=== PATIENT | male | born 1940 | race Caucasian/White ===

== ENCOUNTER 2019-02-09 22:26 | Emergency (ER) | payer MEDICARE ==
[2019-02-09 23:02] LABS: #Basophils 0.1 thou/uL (0.0-0.2); #Eosinphils 0.2 thou/uL (0.0-0.7); #Lymphocytes 1.8 thou/uL (1.20-3.40); #Monocytes 0.8 thou/uL (0.11-0.59); #Neutrophils 5.3 thou/uL (1.40-6.50); %Basophils 0.7 % (0.0-1.0); %Eosinophils 2.6 % (0.0-10.0); %Lymphocytes 22.4 % (21.0-51.0); %Monocytes 9.8 % (0.0-10.0); %Neutrophils 64.5 % (42.0-75.0); Hemoglobin 12.3 g/dL (14.0-18.0); Mean Corpuscular HGB CONC 35.6 g/dL (32.0-36.0); Mean Corpuscular Hemoglobin 30.2 pg (27.0-31.0); Mean Corpuscular Volume 84.9 fL (78.0-98.0); Mean Platelet Volume 6.1 fL (7.4-10.4); Platelet Count 226 thou/uL (130-400); RBC Distribution Width 11.6 % (11.5-14.5); Red Blood Cell (RBC) Count 4.08 mill/uL (4.70-6.10); White Blood Cell (WBC) Count 8.2 thou/uL (4.8-10.8)
--- NOTE | 2019-02-09 23:13 | RAD ---
EXAM: 3 views of the right foot HISTORY: Bilateral feet wounds COMPARISON: None FINDINGS: 3 views of the right foot shows no evidence of acute fracture or dislocation. No osseous er osions are seen. No soft tissue swelling is seen. No degenerative changes are present. IMPRESSION: No evidence of acute osseous abnormality.
--- NOTE | 2019-02-09 23:14 | RAD ---
EXAM: 3 views of the left foot HISTORY: Bilateral feet wounds COMPARISON: None FINDINGS: 3 views of the left foot shows no evidence of acute fracture or dislocation. No osseous ero sions are present. No soft tissue swelling is seen. Joint space narrowing and osteophyte formation is seen in the great toe metatarsophalangeal joint. IMPRESSION: No evidence of acute osseous abnormality.
[2019-02-09 23:17] LABS: ALT (SGPT) 8 U/L (8-55); AST (SGOT) 10 U/L (5-34); Albumin 3.7 g/dL (3.4-4.8); Alkaline Phosphatase 80 U/L (40-150); Anion Gap 15 mmol/L (10-20); BUN (Urea Nitrogen) 14 mg/dL (8.4-25.7); Bilirubin, Total 0.5 mg/dL (0.2-1.2); Calc. Creatinine Clearance 0 mL/min (70-130); Calcium 9.6 mg/dL (7.8-10.44); Carbon Dioxide 25 mmol/L (23-31); Chloride 98 mmol/L (98-107); Estimated GFR-MDRD 72; Globulin 3.4 g/dL (2.4-3.5); Glucose 196 mg/dL (83-110); Potassium 3.6 mmol/L (3.5-5.1); Protein, Total 7.1 g/dL (5.8-8.1); Sodium 134 mmol/L (136-145)
[2019-02-09] MEDS ORDERED: HYDROcodone/Acetaminophen 10/325 mg Tablet ONE (23:53)
[2019-02-09] MEDS ORDERED: Sodium Chloride 0.9% 100 ML ONE (23:55)
[2019-02-09] MEDS ORDERED: Piperacillin/Tazobactam 4.5 GM VIAL ONE (23:55)
== END 2019-02-10 00:48 | disposition short-term general hospital (02) ==
LOC: SCSER 22:26
DX: E11.621 Type 2 diabetes mellitus with foot ulcer (principal); L97.529 Non-pressure chronic ulcer of other part of left foot with unspecified severity; I25.10 Atherosclerotic heart disease of native coronary artery without angina pectoris; I25.2 Old myocardial infarction; E78.5 Hyperlipidemia, unspecified; I10 Essential (primary) hypertension; L03.116 Cellulitis of left lower limb; L03.115 Cellulitis of right lower limb
CPT/HCPCS: 36416; 80053; 85025; 85652; 86140; 87070; 87077; 87186; 87205; 96365; 96375; J2543; J3370; J3490

== ENCOUNTER 2020-03-23 20:09 | Inpatient (IN) | payer MEDICARE, MEDICAID ==
[~2020-03-23 20:09] MED LIST: Iopamidol-370 76% 500 ML 1 ML ONE
[2020-03-23] MEDS ORDERED: Azithromycin 500 MG VIAL ONE (20:27)
[2020-03-23] MEDS ORDERED: Dexamethasone 10 MG/ML VIAL ONE (20:27)
[2020-03-23] MEDS ORDERED: cefTRIAXone\\ROCEPHIN 1 GM VIAL ONE (20:27)
[2020-03-23] MEDS ORDERED: Albuterol 200 PUFF (6.7GM INHALER) ONE (20:39)
--- NOTE | 2020-03-23 21:04 | RAD ---
PORTABLE CHEST: 03/23/20 HISTORY: Shortness of breath. COVID positive. There are bilateral confluent alveolar infiltrates which are prominent in both upper lobes and in the left lower lobe. Heart size upper normal and stable from prior exam of 2011. IMPRESSION: There are confluent bilateral infiltrates. POS: AGW
[2020-03-23 21:09] LABS: #Eosinphils 0.1 thou/uL (0.0-0.7); #Lymphocytes 0.9 thou/uL (1.20-3.40); #Neutrophils 5.3 thou/uL (1.40-6.50); %Basophils 0.6 % (0.0-1.0); %Eosinophils 1.7 % (0.0-10.0); %Lymphocytes 12.4 % (21.0-51.0); %Monocytes 13.6 % (0.0-10.0); %Neutrophils 71.7 % (42.0-75.0); Hemoglobin 12.9 g/dL (14.0-18.0); Mean Corpuscular HGB CONC 34.1 g/dL (32.0-36.0); Mean Corpuscular Hemoglobin 30.2 pg (27.0-31.0); Mean Corpuscular Volume 88.6 fL (78.0-98.0); Mean Platelet Volume 6.3 fL (7.4-10.4); Platelet Count 304 thou/uL (130-400); RBC Distribution Width 12.3 % (11.5-14.5); Red Blood Cell (RBC) Count 4.27 mill/uL (4.70-6.10); White Blood Cell (WBC) Count 7.4 thou/uL (4.8-10.8)
[2020-03-23 21:43] LABS: ALT (SGPT) 8 U/L (8-55); AST (SGOT) 15 U/L (5-34); Albumin 3.1 g/dL (3.4-4.8); Alkaline Phosphatase 54 U/L (40-110); Anion Gap 15 mmol/L (10-20); BUN (Urea Nitrogen) 30 mg/dL (8.4-25.7); Bilirubin, Total 0.5 mg/dL (0.2-1.2); Calc. Creatinine Clearance 0 mL/min (70-130); Carbon Dioxide 25 mmol/L (23-31); Chloride 91 mmol/L (98-107); Estimated GFR-MDRD 67; Glucose 130 mg/dL (83-110); Lipase 6 U/L (8-78); Potassium 4.3 mmol/L (3.5-5.1); Protein, Total 7.1 g/dL (5.8-8.1); Sodium 127 mmol/L (136-145)
[2020-03-23] MEDS ORDERED: Aspirin Chewable 81 MG TAB ONE (21:47)
[2020-03-23 21:54] LABS: CKMB 1.1 ng/mL (0-6.6)
[2020-03-23] MEDS ORDERED: Enoxaparin Sodium 100 MG/ML SYRINGE ONE (22:25)
[2020-03-23] MEDS ORDERED: HYDROcodone/Acetaminophen 5/325 mg Tablet PO PRN ×2 (23:04)
[2020-03-23] MEDS ORDERED: Guaifenesin DM 100-10/5 ML UDCUP PO PRN (23:04)
[2020-03-23] MEDS ORDERED: Ondansetron ODT 4 MG TAB PO PRN (23:04)
[2020-03-23] MEDS ORDERED: Ondansetron PF 4 MG/2 ML Vial IVP PRN (23:04)
[2020-03-23] MEDS ORDERED: Acetaminophen 650 MG Suppository PR PRN (23:04)
[2020-03-23] MEDS ORDERED: Nitroglycerin 0.4 MG TAB (25 Tab Bottle) SL PRN (23:04)
[2020-03-23] MEDS ORDERED: Calcium Carbonate 500 MG ChewTAB PO PRN (23:04)
[2020-03-23] MEDS ORDERED: Acetaminophen 325 MG TAB PO PRN (23:04)
[2020-03-23] MEDS ORDERED: Nitroglycerin 2% Ointment 1 INCH/1 GM Packet ONE (23:25)
[2020-03-23] MEDS ORDERED: Clopidogrel Bisulfate 75 MG TAB ONE (23:25)
--- NOTE | 2020-03-23 23:26 | PDOC.HHP ---
Hospitalist HPI - History of Present Illness covid 19 hypoxia History of Present Illness: Case of an 80y/o male group home resident with a pmhx of dementia, bipolar, cad, dm, hld and htn who was sent to hospital due to worsening of his covid symptoms. patient was been treated for covid at nursing, his symptoms kept worsening and started with hypoxia in the 70s at [facility] and they were unable to improve it with ther supplement oxygenation for which patient was sent to hospital for further care, was a 80s on 3L. patient is oriented to self and place but is not sure why he is on the hospital, denies any fever chills cough or malaise Hospitalist ROS - Review of Systems All other systems reviewed; all pertinent +/- noted in HPI/Subj Hospitalist History - Past Surgical History Past Surgical History: reports: Total Hip Replacement - Family History Family History: reports: no pertinent history - Social History Smoking Status: Never smoker Alcohol: reports: None Drugs: reports: none - Exam General Appearance: NAD, awake alert Eye: PERRL, anicteric sclera ENT: normocephalic atraumatic, no oropharyngeal lesions Neck: supple, symmetric, no JVD Heart: RRR, no murmur, no gallops Respiratory: CTAB, no wheezes, no rales Gastrointestinal: soft, non-tender, non-distended Extremities: no cyanosis, no clubbing, no edema Skin: normal turgor, no lesions, no rashes Neurological: cranial nerve grossly intact, normal sensation to touch Musculoskeletal: normal tone, normal strength, no muscle wasting Psychiatric: normal affect, normal behavior, A&O x 3 Hospitalist Results - Labs Result Diagrams: 03/23/20 21:00 03/23/20 21:00 Lab results: WBC 7.4 thou/uL (4.8-10.8) 03/23/20 21:00 Hgb 12.9 g/dL (14.0-18.0) L 03/23/20 21:00 Hct 37.8 % (42.0-52.0) L 03/23/20 21:00 MCV 88.6 fL (78.0-98.0) 03/23/20 21:00 Plt Count 304 thou/uL (130-400) 03/23/20 21:00 Neutrophils % 71.7 % (42.0-75.0) 03/23/20 21:00 Sodium 127 mmol/L (136-145) L 03/23/20 21:00 Potassium 4.3 mmol/L (3.5-5.1) 03/23/20 21:00 Chloride 91 mmol/L (98-107) L 03/23/20 21:00 Carbon Dioxide 25 mmol/L (23-31) 03/23/20 21:00 BUN 30 mg/dL (8.4-25.7) H 03/23/20 21:00 Creatinine 1.07 mg/dL (0.7-1.3) 03/23/20 21:00 Glucose 130 mg/dL (83-110) H 03/23/20 21:00 Lactic Acid 1.2 mmol/L (0.5-2.2) 03/23/20 21:01 Calcium 9.0 mg/dL (7.8-10.44) 03/23/20 21:00 Total Bilirubin 0.5 mg/dL (0.2-1.2) 03/23/20 21:00 AST 15 U/L (5-34) 03/23/20 21:00 ALT 8 U/L (8-55) 03/23/20 21:00 Alkaline Phosphatase 54 U/L (40-110) 03/23/20 21:00 CK-MB (CK-2) 1.1 ng/mL (0-6.6) 03/23/20 21:00 Troponin I 1.283 ng/mL (< 0.028) H* 03/23/20 21:00 Serum Total Protein 7.1 g/dL (5.8-8.1) 03/23/20 21:00 Albumin 3.1 g/dL (3.4-4.8) L 03/23/20 21:00 Lipase 6 U/L (8-78) L 03/23/20 21:00 Hospitalist H&P A/P - Problem (1) Pneumonia due to COVID-19 virus Code(s): U07.1 - COVID-19; J12.89 - OTHER VIRAL PNEUMONIA Status: Acute (2) NSTEMI (non-ST elevated myocardial infarction) Code(s): I21.4 - NON-ST ELEVATION (NSTEMI) MYOCARDIAL INFARCTION Status: Acute (3) Respiratory failure with hypoxia Code(s): J96.91 - RESPIRATORY FAILURE, UNSPECIFIED WITH HYPOXIA Status: Acute (4) Dementia Code(s): F03.90 - UNSPECIFIED DEMENTIA WITHOUT BEHAVIORAL DISTURBANCE Status: Acute (5) CAD (coronary artery disease) Code(s): I25.10 - ATHSCL HEART DISEASE OF [place] CORONARY ARTERY W/O ANG PCTRS Status: Acute (6) Diabetes Code(s): E11.9 - TYPE 2 DIABETES MELLITUS WITHOUT COMPLICATIONS Status: Acute (7) HLD (hyperlipidemia) Code(s): E78.5 - HYPERLIPIDEMIA, UNSPECIFIED Status: Acute (8) HTN (hypertension) Code(s): I10 - ESSENTIAL (PRIMARY) HYPERTENSION Status: Acute - Plan Plan: 80y/o male with the stated pmhx who present to hospial due to worsening covid 19 pneumonia covid 19 pneumonia - tested postive at group home - cx consistnent w covid 19 - started prophylactically on rocephin + charlene - dexamethasone 6mg ivd - f/u cultures - f/u inflmaation markers - id consulted respiratory failure w hypoxia - 02 supplementation - secondary to above nstemi - elevated troponin at 1.3 will trend - st changes lateral lead w q waves - 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
[2020-03-24 00:18] LABS: Critical Call Chem Troponin I RESULT DECREASING
[2020-03-24] MEDS: Sodium Chloride 0.9% 1,000 ML IV SCH ×2 (02:00→09:35)
[2020-03-24 05:08] LABS: Hemoglobin A1c 5.4 % (4.0-6.0)
[2020-03-24 05:31] LABS: Critical Call Chem Troponin I RESULT DECREASING; Troponin I 0.846 ng/mL (< 0.028)
[2020-03-24 05:34] LABS: ALT (SGPT) 12 U/L (8-55); AST (SGOT) 20 U/L (5-34); Albumin 3.2 g/dL (3.4-4.8); Alkaline Phosphatase 53 U/L (40-110); Anion Gap 19 mmol/L (10-20); BUN (Urea Nitrogen) 35 mg/dL (8.4-25.7); Bilirubin, Total 0.4 mg/dL (0.2-1.2); CRP (Inflammatory) 26.03 mg/dL (= or < 0.5); Calc. Creatinine Clearance 68 mL/min (70-130); Calcium 9.2 mg/dL (7.8-10.44); Carbon Dioxide 19 mmol/L (23-31); Cardiac Risk 7.5 (Less than 4.5); Chloride 93 mmol/L (98-107); Cholesterol 180 mg/dl (< 200 Desired); Estimated GFR-MDRD 66; Globulin 4.1 g/dL (2.4-3.5); Glucose 215 mg/dL (83-110); HDL Cholesterol 24 mg/dL (>60 Neg Risk); LDL Cholesterol, Calculated 136 mg/dL; Potassium 5.1 mmol/L (3.5-5.1); Protein, Total 7.3 g/dL (5.8-8.1); Sodium 126 mmol/L (136-145); Triglycerides 99 mg/dL (Less than 150)
[2020-03-24 05:42] LABS: Thyroid Stimulating Hormone 0.5574 uIU/mL (0.35-4.94)
[2020-03-24 05:46] LABS: Hemoglobin 12.4 g/dL (14.0-18.0); Mean Corpuscular HGB CONC 33.8 g/dL (32.0-36.0); Mean Corpuscular Hemoglobin 29.9 pg (27.0-31.0); Mean Corpuscular Volume 88.4 fL (78.0-98.0); Mean Platelet Volume 6.9 fL (7.4-10.4); Platelet Count 282 thou/uL (130-400); RBC Distribution Width 12.4 % (11.5-14.5); Red Blood Cell (RBC) Count 4.15 mill/uL (4.70-6.10); White Blood Cell (WBC) Count 6.2 thou/uL (4.8-10.8)
[2020-03-24 05:47] LABS: Band 6 % (5-11); Lymphocytes 13 % (21-51); MDiff Complete? YES; Monocytes 3 % (0-10); Neutrophil 78 % (42-75)
--- NOTE | 2020-03-24 06:25 | CT ---
CTA CHEST WITH CONTRAST: Date: 03/23/2020 Axial tomograms obtained with multiplanar reconstruction and 3D postprocessing. INDICATION: Shortness of breath. COVID-positive. FINDINGS: Pulmonary arteries show adequate opacification. There is no evidence of pulmonary embolus. There is mediastinal and hilar adenopathy. Small bilateral pleural effusions. The lung sanchez show diffuse confluent alveolar infiltrates throughout all lobes of both lung sanchez. Findings indicate extensive bilateral COVID pneumonia. IMPRESSION: 1. No evidence of pulmonary embolus. 2. Small bilateral effusions. 3. Mediastinal and hilar adenopathy. 4. Extensive bilateral pulmonary infiltrates consistent with COVID pneumonia. POS: AGW
[2020-03-24] MEDS ORDERED: FLU VACC QS2020-21(65YR UP)/PF 240 MCG/0.7 ML SYRINGE IM ONE (08:00)
[2020-03-24] MEDS: Aspirin 325 mg Enteric Coated Tablet PO SCH (09:31)
[2020-03-24] MEDS: Lisinopril 5 MG TAB PO SCH (09:31)
[2020-03-24] MEDS: Dexamethasone 4 mg/ml Vial SLOW IVP SCH (09:31)
[2020-03-24] MEDS: Enoxaparin Sodium 100 MG/ML SYRINGE SC SCH ×2 (09:31→21:38)
[2020-03-24] MEDS: Metoprolol Tartrate 25 MG TAB PO SCH ×2 (09:31→21:39)
--- NOTE | 2020-03-24 10:22 | PDOC.HOSPP ---
- Subjective Encounter Date: 03/24/20 Encounter Time: 10:18 Subjective: This patient is a 80[facility]-old [facility] who [facility] with [facility]id pneumonia [facility] being [facility]. Unfortunately it appears that he deteriorated prompting transfer to the [facility]. He was requiring oxygen on arrival but by the time I saw him this morning he was on room air. He had no fever, he has some cough. ID services were consulted. He will likely benefit from remdesivir. Will defer to the ID services about that. - Objective Vital Signs & Weight: Vital Signs (12 hours) Temp Pulse Resp BP Pulse Ox 03/24/20 07:47 92 L 03/24/20 07:04 97.7 F 102 H 24 H 125/78 92 L 03/24/20 03:50 97.5 F L 106 H 20 126/68 93 L 03/24/20 01:48 97.6 F 108 H 24 H 131/79 96 Weight Weight 186 lb 12.8 oz I&O: 03/23/20 03/24/20 03/25/20 06:59 06:59 06:59 Intake Total 300 Balance 300 Result Diagrams: 03/24/20 04:34 03/24/20 04:34 Additional Labs: Accuchecks 03/24/20 02:43 POC Glucose 205 H Radiology Reviewed by me: Yes EKG Reviewed by me: Yes Hospitalist ROS - Review of Systems Constitutional: reports: fever, weakness Respiratory: reports: cough, shortness of breath, sputum Gastrointestinal: reports: nausea Neurological: reports: weakness, incoordination - Medication Medications: Active Medications Generic Name Dose Route Start Last Admin Trade Name Maxime PRN Reason Stop Dose Admin Aspirin 325 mg 03/24/20 09:00 03/24/20 09:31 Aspirin 325 Mg Enteric Coated Tablet PO 325 mg DAILY MIKAELA Administration Dexamethasone 6 mg 03/24/20 09:00 03/24/20 09:31 Dexamethasone 4 Mg/Ml Vial SLOW IVP 6 mg DAILY MIKAELA Administration Enoxaparin Sodium 90 mg 03/24/20 09:00 03/24/20 09:31 Enoxaparin Sodium 100 Mg/Ml Syringe SC 90 mg 0900,2100 MIKAELA Administration Sodium Chloride 1,000 mls @ 70 mls/hr 03/23/20 23:15 03/24/20 09:35 Normal Saline 0.9% IV 1,000 mls .[id number] MIKAELA Administration Lisinopril 5 mg 03/24/20 09:00 03/24/20 09:31 Lisinopril 5 Mg Tab PO 5 mg DAILY MIKAELA Administration Metoprolol Tartrate 12.5 mg 03/24/20 09:00 03/24/20 09:31 Metoprolol Tartrate 25 Mg Tab PO 12.5 mg BID MIKAELA Administration Sodium Chloride 10 ml 03/24/20 09:00 03/24/20 09:32 Flush - Normal Saline 10 Ml Syringe IVF 10 ml Q12HR MIKAELA Administration - Exam General Appearance: awake alert Eye: PERRL, anicteric sclera ENT: normocephalic atraumatic, no oropharyngeal lesions, moist mucosa Neck: supple, symmetric, no JVD, no lymphadenopathy Heart: RRR, no murmur, no rubs, normal peripheral pulses Respiratory: CTAB, no wheezes, no rales, no ronchi, normal chest expansion, no tachypnea Gastrointestinal: soft, non-tender, non-distended, normal bowel sounds, no hepatomegaly, no splenomegaly, no guarding, no rigidity Extremities: no cyanosis, no clubbing, no edema Neurological: normal sensation to touch, no focal deficits, no new deficit Musculoskeletal: generalized weakness Psychiatric: normal affect, normal behavior, A&O x 3, oriented to person, oriented to place Hosp A/P (1) Respiratory failure with hypoxia Code(s): J96.91 - RESPIRATORY FAILURE, UNSPECIFIED WITH HYPOXIA Status: Acute Qualifiers: Chronicity: acute Qualified Code(s): J96.01 - Acute respiratory failure with hypoxia Plan: Continue O2 supplementation as needed. (2) Pneumonia due to COVID-19 virus Code(s): U07.1 - COVID-19; J12.89 - OTHER VIRAL PNEUMONIA Status: Acute Plan: Continue IV antibiotics. ID services were consulted and I will defer to them about further management of the Covid. (3) Dementia Code(s): F03.90 - UNSPECIFIED DEMENTIA WITHOUT BEHAVIORAL DISTURBANCE Status: Acute Qualifiers: Dementia type: vascular dementia Dementia behavioral disturbance: with behavioral disturbance Qualified Code(s): F01.51 - Vascular dementia with behavioral disturbance (4) Diabetes Code(s): E11.9 - TYPE 2 DIABETES MELLITUS WITHOUT COMPLICATIONS Status: Acute Qualifiers: Diabetes mellitus type: type 2 Diabetes mellitus fpc insulin use: with fpc use Diabetes mellitus complication status: with kidney complications Diabetes mellitus complication detail: with microalbuminuria Qualified Code(s): E11.29 - Type 2 diabetes mellitus with other diabetic kidney complication; R80.9 - Proteinuria, unspecified; Z79.4 - 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 Likely secondary to COVID-19 pneumonia. We will utilize O2 supplementation as needed. 2. COVID-19 pneumonia. [facility] and he started declining prompting this transfer to the hospital. Chest x-ray obtained here on admission consistent with Covid pneumonia. He is on empiric IV antibiotics and ID services evaluation has been obtained. I will defer to them about further management. 3. Diabetes type 2. Accu-Cheks before meals and at bedtime. We will utilize insulin sliding scale coverage. 4. Hyponatremia. Likely pseudohyponatremia from elevated blood glucose. We will correct this. 5. Elevated troponin. He did not report any chest pain. This is likely type II secondary to COVID-19 pneumonia and respiratory failure.
[2020-03-24 10:24] LABS: Ferritin 568.54 ng/mL (22-322)
[2020-03-24] MEDS ORDERED: cloNIDine 0.1 MG TAB PO PRN (12:57)
--- NOTE | 2020-03-24 15:15 | CON ---
DATE OF CONSULTATION: 03/24/2020 REASON FOR CONSULTATION: COVID infection. HISTORY OF PRESENT ILLNESS: A 80-year-old with history of coronary artery disease, type 2 diabetes, hypertension, and dementia, who is a resident at a local care home and has been diagnosed with COVID infection within a few days. It is not clear how long this infection has taken place or the duration of symptoms. We will have to clarify this with the care home. On arrival; his BP 130/76, temperature 98.4, O2 saturation 99 on a nonrebreather. Right now, he is on nasal cannula O2 and he is a little bit confused, but he is awake and alert and follows commands. Denies any headaches. Mild shortness of breath, coughing intermittently. No abdominal pain. No diarrhea. He is able to void without any assistance. PAST MEDICAL HISTORY: 1. Coronary artery disease. 2. Type 2 diabetes. 3. Hypertension. 4. Dementia. 5. Hip replacement. FAMILY HISTORY: Not pertinent. SOCIAL HISTORY: Never smoker. assisted resident. CURRENT MEDICATIONS: 1. Ecotrin. 2. Lipitor. 3. Azithromycin. 4. Rocephin. 5. Decadron. 6. Lovenox. 7. Zofran. PHYSICAL EXAMINATION: VITAL SIGNS: T-max 97.9, blood pressure 120/70, heart rate 102, respiratory rate 20 to 24, and saturating 92 on 1 L. GENERAL: Does not appear in distress. SKIN: Peripheral IV access. No lymphadenopathy. Alopecia. HEENT: Ocular movements conjugate. Sclerae white. Conjunctivae normal. Oral cavity with no significant findings. NECK: Supple. LUNGS: Symmetric. Clear breath sounds. HEART: S1 and S2. Regular rate without murmurs. No S3 or S4. ABDOMEN: Soft, not distended or tender. No ascites. No bladder distention. EXTREMITIES: No joint inflammatory activity. Able to move extremities. No edema. Pulses 1+ in dorsalis pedis. NEUROLOGIC: He is awake, knows his name, he did not know where he was and ability to give the sequence of events, very limited, he does have a very poor insight and very poor recent memory. LABORATORY DATA: White cell count 7.4 and 6.2, hemoglobin 12.4, and platelets 282 with 78% neutrophils. Sodium 126 and creatinine 1.08. Ferritin 568. Liver profile normal. LDH 283. Albumin 3.2. CRP 26. TSH 0.55. Procalcitonin 0.15. Chest x-ray, severe bilateral infiltrates. ASSESSMENT: 1. Dementia. 2. Type 2 diabetes. 3. Coronary artery disease. 4. Hypertension. 5. Severe COVID pneumonia. We will clarify with care home the duration of symptoms to see if he would be eligible for antiviral. In his case, it would be high probability of further deterioration, end up with high-flow O2, hopefully will turn around in the next few days, but the degree of infiltrates portends a poor prognosis in this age group. Job ID: [id number] [facility]
[2020-03-24] MEDS: Gabapentin 300 MG CAP PO SCH ×2 (16:27→21:39)
[2020-03-24] MEDS ORDERED: Dextrose 5% in Water 1,000 ML IV PRN (18:11)
[2020-03-24] MEDS ORDERED: HumaLOG 300 UNITS/3 ML VIAL SC PRN (18:11)
[2020-03-24] MEDS ORDERED: Dextrose 50% Abboject 50 ML SYRINGE SLOW IVP PRN (18:11)
[2020-03-24] MEDS: HumaLOG 300 UNITS/3 ML VIAL SC PRN (18:23)
[2020-03-24] MEDS: Azithromycin 500 MG in Sodium Chloride 0.9% 250 ML 250 ML IVPB SCH (20:50)
[2020-03-24] MEDS: Atorvastatin Calcium 40 MG TAB PO SCH (21:38)
[2020-03-24] MEDS: cefTRIAXone\\ROCEPHIN 1 GM in Sodium Chloride 0.9% 100 ML IVPB SCH (22:45)
[2020-03-25] MEDS: Sodium Chloride 0.9% 1,000 ML IV SCH (02:02)
[2020-03-25 05:24] LABS: Anion Gap 15 mmol/L (10-20); BUN (Urea Nitrogen) 46 mg/dL (8.4-25.7); Calc. Creatinine Clearance 69 mL/min (70-130); Calcium 9.1 mg/dL (7.8-10.44); Carbon Dioxide 22 mmol/L (23-31); Chloride 94 mmol/L (98-107); Estimated GFR-MDRD 68; Glucose 192 mg/dL (83-110); Potassium 4.4 mmol/L (3.5-5.1); Sodium 127 mmol/L (136-145)
[2020-03-25 05:28] LABS: #Lymphocytes 0.8 thou/uL (1.20-3.40); #Monocytes 0.8 thou/uL (0.11-0.59); #Neutrophils 10.4 thou/uL (1.40-6.50); %Basophils 0.1 % (0.0-1.0); %Eosinophils 0.1 % (0.0-10.0); %Lymphocytes 6.7 % (21.0-51.0); %Monocytes 6.9 % (0.0-10.0); %Neutrophils 86.2 % (42.0-75.0); Hemoglobin 12.4 g/dL (14.0-18.0); Mean Corpuscular HGB CONC 33.7 g/dL (32.0-36.0); Mean Corpuscular Volume 89.2 fL (78.0-98.0); Platelet Count 400 thou/uL (130-400); RBC Distribution Width 12.3 % (11.5-14.5); Red Blood Cell (RBC) Count 4.14 mill/uL (4.70-6.10); White Blood Cell (WBC) Count 12.1 thou/uL (4.8-10.8)
--- NOTE | 2020-03-25 05:52 | CON ---
DATE OF CONSULTATION: 03/24/2020 REASON FOR CONSULTATION: Elevated troponin. HISTORY OF PRESENT ILLNESS: Mr. Holland is very pleasant, confused, a 80-year-old gentleman who I have seen and evaluated in the past. He has not been seen over the last 10 years. He has a previous history of stent placement in addition to completely occluded right coronary artery. This has been known since at least 2006. He recently presented with COVID pneumonia. He denied chest pain or pressure. His only complaint was shortness of breath. Troponin was slightly elevated at 1.2. PAST MEDICAL HISTORY: CAD, status post stent placement; dementia; bipolar disorder; diabetes mellitus; hyperlipidemia; and hypertension. PAST SURGICAL HISTORY: Hip replacement. FAMILY HISTORY: Negative for CAD. SOCIAL HISTORY: No current tobacco or alcohol use. HOME MEDICATIONS: 1. Seroquel. 2. Metformin. 3. Melatonin. 4. Lisinopril. 5. Gabapentin. 6. Fluoxetine. 7. Iron sulfate. 8. Depakote. 9. Catapres. 10. Aspirin. 11. Acetaminophen. ALLERGIES: NONE. REVIEW OF SYSTEMS: is currently confused. He states he was hunting yesterday when in fact he was in the hospital. PHYSICAL EXAMINATION: VITAL SIGNS: Blood pressure 126/74, pulse 89, and temperature 97.9. Physical exam deferred due to COVID positive pneumonia. PERTINENT LABORATORY DATA: Sodium 126, potassium 5.1, ferritin 568, lactate dehydrogenase 283. C-reactive protein 26. Peak troponin 1.2. IMPRESSION: 1. Elevated troponin. 2. COVID pneumonia. 3. Dementia. 4. Bipolar disorder. RECOMMENDATIONS: I would recommend conservative therapy. Elevated troponin, secondary to type 2 IL from recent COVID pneumonia. He has no current symptoms suggesting angina. I agree with use of Lovenox 90 mg subcu b.i.d. due to increased risk of thrombosis from COVID. We will also continue with aspirin 325 q.a.m. We will recommend monitoring his blood pressure and heart rate aggressively. Job ID: [id number]
[2020-03-25] MEDS ORDERED: Furosemide 40 MG/4 ML VIAL SLOW IVP SCH (09:00)
[2020-03-25] MEDS: Enoxaparin Sodium 100 MG/ML SYRINGE SC SCH ×2 (09:13→21:06)
[2020-03-25] MEDS: Dexamethasone 4 mg/ml Vial SLOW IVP SCH (09:15)
--- NOTE | 2020-03-25 09:15 | RAD ---
PORTABLE CHEST 1 VIEW: DATE: 03/25/2020. TIME: 9:01 AM. HISTORY: COVID-19 pneumonia, increasing shortness of breath. COMPARISON: 03/23/2020. FINDINGS: The heart size is stable. Interval worsening of bilateral lung opacities has occurred since the prev ious study. No pneumothoraces or pleural effusions are seen. IMPRESSION: Worsening COVID-19 pneumonia. POS: AH
[2020-03-25] MEDS: Cholecalciferol 1,000 UNITS (25 MCG) TAB PO SCH (09:19)
[2020-03-25] MEDS: Gabapentin 300 MG CAP PO SCH ×3 (09:19→21:07)
[2020-03-25] MEDS: Aspirin 325 mg Enteric Coated Tablet PO SCH (09:19)
[2020-03-25] MEDS: FLUoxetine HCl 20 MG CAP PO SCH (09:19)
[2020-03-25] MEDS: Lisinopril 5 MG TAB PO SCH (09:22)
[2020-03-25] MEDS: Metoprolol Tartrate 25 MG TAB PO SCH ×2 (09:23→21:06)
--- NOTE | 2020-03-25 11:21 | PDOC.HOSPP ---
- Subjective Encounter Date: 03/25/20 Encounter Time: 11:17 Subjective: Events from last night are reviewed. He became more dyspneic and is now on high flow nasal cannula. On exam he has diffuse expiratory rhonchi and rales. He does still have cough. He looks comfortable on a high flow nasal cannula. We obtained stat chest x-ray this morning which showed worsening COVID-19 pneumonia. I suspect has some element of pulmonary edema from iatrogenic volume resuscitation. He can benefit from Lasix and we will give him 40 every 8 hours for now. - Objective Vital Signs & Weight: Vital Signs (12 hours) Temp Pulse Resp BP BP Pulse Ox 03/25/20 09:25 97.6 F 03/25/20 09:12 93 L 03/25/20 06:15 96.3 F L 86 24 H 119/76 98 03/25/20 05:45 95 03/25/20 05:20 68 L 03/25/20 03:30 97.6 F 87 20 114/67 85 L 03/25/20 01:49 96 03/25/20 00:05 97.6 F 82 24 H 107/59 L 92 L Weight Admit Weight 186 lb 12.8 oz Weight 186 lb 12.8 oz I&O: 03/24/20 03/25/20 03/26/20 06:59 06:59 06:59 Intake Total 300 2214 Balance 300 2214 Result Diagrams: 03/25/20 04:25 03/25/20 04:25 Radiology Reviewed by me: Yes (Worsening COVID-19 pneumonia. Diffuse pleural effusions as well.) Hospitalist ROS - Review of Systems Constitutional: reports: weakness, malaise Respiratory: reports: cough, shortness of breath, SOB with excertion, wheezing Cardiovascular: reports: paroxysmal noc. dyspnea Gastrointestinal: reports: nausea - Medication Medications: Active Medications Generic Name Dose Route Start Last Admin Trade Name Freq PRN Reason Stop Dose Admin Aspirin 325 mg 03/24/20 09:00 03/25/20 09:19 Aspirin 325 Mg Enteric Coated Tablet PO 325 mg DAILY MIKAELA Administration Atorvastatin Calcium 40 mg 03/24/20 21:00 03/24/20 21:38 Atorvastatin Calcium 40 Mg Tab PO 40 mg HS MIKAELA Administration Cholecalciferol 1,000 units 03/25/20 09:00 03/25/20 09:19 Cholecalciferol 1,000 Units (25 Mcg) Tab PO 1,000 units DAILY MIKAELA Administration Dexamethasone 6 mg 03/24/20 09:00 03/25/20 09:15 Dexamethasone 4 Mg/Ml Vial SLOW IVP 6 mg DAILY MIKAELA Administration Divalproex Sodium 500 mg 03/24/20 21:00 03/24/20 21:38 Divalproex Sodium Er 500 Mg Tablet PO 500 mg HS MIKAELA Administration Enoxaparin Sodium 90 mg 03/24/20 09:00 03/25/20 09:13 Enoxaparin Sodium 100 Mg/Ml Syringe SC 90 mg 09,2099 MIKAELA Administration Fluoxetine HCl 20 mg 03/25/20 09:00 03/25/20 09:19 Fluoxetine Hcl 20 Mg Cap PO 20 mg DAILY MIKAELA Administration Furosemide 40 mg 03/25/20 09:00 03/25/20 09:13 Furosemide 40 Mg/4 Ml Vial SLOW IVP 03/25/20 12:00 40 mg NOW MIKAELA Administration Gabapentin 300 mg 03/24/20 15:00 03/25/20 09:19 Gabapentin 300 Mg Cap PO 300 mg TID MIKAELA Administration Ceftriaxone Sodium 1 gm/ 100 mls @ 200 mls/hr 03/24/20 21:00 03/24/20 22:45 Sodium Chloride IVPB 100 mls Q24HR MIKAELA Administration Azithromycin 500 mg/ Sodium 250 mls @ 250 mls/hr 03/24/20 21:00 03/24/20 20 :50 Chloride IVPB 250 mls Q24HR MIKAELA Administration Insulin Human Lispro 0 units 03/24/20 18:11 03/24/20 21:56 Humalog 300 Units/3 Ml Vial SC 2 unit .BEDTIME SLIDING SC PRN Administration Bedtime Correctional Scale Lisinopril 5 mg 03/24/20 09:00 03/25/20 09:22 Lisinopril 5 Mg Tab PO 5 mg DAILY MIKAELA Administration Metoprolol Tartrate 12.5 mg 03/24/20 09:00 03/25/20 09:23 Metoprolol Tartrate 25 Mg Tab PO 12.5 mg BID MIKAELA Administration Quetiapine Fumarate 25 mg 03/24/20 21:00 03/25/20 09:22 Quetiapine Fumarate 25 Mg Tab PO 25 mg BID MIKAELA Administration Sodium Chloride 10 ml 03/24/20 09:00 03/25/20 09:24 Flush - Normal Saline 10 Ml Syringe IVF 10 ml Q12HR MIKAELA Administration - Exam General Appearance: ill appearing Eye: PERRL, anicteric sclera ENT: normocephalic atraumatic, no oropharyngeal lesions, moist mucosa Neck: supple, symmetric, no lymphadenopathy, JVD Heart: RRR, no murmur Respiratory: rales, rhonchi, wheezes Gastrointestinal: soft, non-tender, non-distended, normal bowel sounds Extremities: no cyanosis Skin: normal turgor Musculoskeletal: normal tone, normal strength, no muscle wasting Psychiatric: normal affect, oriented to place, oriented to time Hosp A/P (1) Respiratory failure with hypoxia Code(s): J96.91 - RESPIRATORY FAILURE, UNSPECIFIED WITH HYPOXIA Status: Acute Qualifiers: Chronicity: acute Qualified Code(s): J96.01 - Acute respiratory failure with hypoxia Plan: Complicated by COVID-19 pneumonia. He has been upgraded to high flow nasal cannula. We will have a low threshold to intubate this maximino should he not improve. (2) Pneumonia due to COVID-19 virus Code(s): U07.1 - COVID-19; J12.89 - OTHER VIRAL PNEUMONIA Status: Acute Plan: We appreciate our ID colleagues. Continue current management plan. 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 This appears to be a type II VT secondary to respiratory failure from the Covid. - Plan old records reviewed/req, continue antibiotics, PT/OT, respiratory therapy #1 Acute hypoxic respiratory failure. Likely secondary to COVID-19 pneumonia. We will utilize O2 supplementation as needed. 03/25/2020. His respiratory status appears to have worsened overnight. He is now on high flow nasal cannula. There appears to be now elements of pleural effusion likely from iatrogenic volume resuscitation from admission. We will keep him on high flow nasal cannula and downgrade as tolerated. 2. COVID-19 pneumonia. He reportedly was diagnosed at his [facility] and he started declining prompting this transfer to the hospital. Chest x-ray obtained here on admission consistent with Covid pneumonia. He is on empiric IV antibiotics and ID services evaluation has been obtained. I will defer to them about further management. 03/25/2020. Continue treatment for the Covid pneumonia. 3. Diabetes type 2. Accu-Cheks before meals and at bedtime. We will utilize insulin sliding scale coverage. 03/25/2020. Diabetes type 2 now complicated by steroid use for his Covid. We will continue to utilize sliding scale coverage. 4. Hyponatremia. Likely pseudohyponatremia from elevated blood glucose. We will correct this. 5. Elevated troponin. He did not report any chest pain. This is likely type II secondary to COVID-19 pneumonia and respiratory failure. 03/25/2020. He has been evaluated by copy supervisor who recommends medical management.
[2020-03-25 11:41] LABS: Hemoglobin 12.5 g/dL (14.0-18.0); Platelet Count 335 thou/uL (130-400)
[2020-03-25] MEDS: HumaLOG 300 UNITS/3 ML VIAL SC PRN ×2 (14:57→17:59)
[2020-03-25] MEDS: Furosemide 40 MG/4 ML VIAL SLOW IVP SCH ×2 (17:59→19:49)
[2020-03-25] MEDS: cefTRIAXone\\ROCEPHIN 1 GM in Sodium Chloride 0.9% 100 ML IVPB SCH (21:06)
[2020-03-25] MEDS: Atorvastatin Calcium 40 MG TAB PO SCH (21:07)
[2020-03-25] MEDS: Azithromycin 500 MG in Sodium Chloride 0.9% 250 ML 250 ML IVPB SCH (21:38)
[2020-03-26] MEDS: Furosemide 40 MG/4 ML VIAL SLOW IVP SCH ×2 (00:30→11:27)
[2020-03-26 05:20] LABS: #Basophils 0.1 thou/uL (0.0-0.2); #Lymphocytes 0.6 thou/uL (1.20-3.40); #Monocytes 0.8 thou/uL (0.11-0.59); %Basophils 0.8 % (0.0-1.0); %Eosinophils 0.1 % (0.0-10.0); %Lymphocytes 3.7 % (21.0-51.0); %Monocytes 5.1 % (0.0-10.0); %Neutrophils 90.3 % (42.0-75.0); Hemoglobin 12.1 g/dL (14.0-18.0); Mean Corpuscular HGB CONC 33.8 g/dL (32.0-36.0); Mean Corpuscular Hemoglobin 30.2 pg (27.0-31.0); Mean Corpuscular Volume 89.3 fL (78.0-98.0); Mean Platelet Volume 7.1 fL (7.4-10.4); Platelet Count 441 thou/uL (130-400); RBC Distribution Width 12.4 % (11.5-14.5); Red Blood Cell (RBC) Count 4.01 mill/uL (4.70-6.10); White Blood Cell (WBC) Count 15.5 thou/uL (4.8-10.8)
[2020-03-26 05:36] LABS: Anion Gap 19 mmol/L (10-20); BUN (Urea Nitrogen) 58 mg/dL (8.4-25.7); Calc. Creatinine Clearance 59 mL/min (70-130); Calcium 9.2 mg/dL (7.8-10.44); Carbon Dioxide 20 mmol/L (23-31); Chloride 96 mmol/L (98-107); Estimated GFR-MDRD 56; Glucose 165 mg/dL (83-110); Potassium 4.9 mmol/L (3.5-5.1); Sodium 130 mmol/L (136-145)
[2020-03-26 06:03] LABS: Actual Bicarbonate (HCO3a) 18.9 mEq/L (22-28); Base Excess (BEa) -4.8 mEq/L (-2.0 to +3.0); Calcium, Ionized (arterial) 1.18 mmol/L (1.12-1.30); Carboxyhemoglobin (COHb) 0.3 gm% (0.0-3.0); Hemoglobin (Hb) 12.3 g/dL (14.0-18.0); Potassium - ABG Lab 4.41 mmol/L (3.70-5.30)
[2020-03-26 06:04] LABS: O2 Tension (PaO2), arterial 52.1 mmHg (> 70.0)
[2020-03-26 06:05] LABS: Puncture Site RBRACH
[2020-03-26] MEDS: Dexamethasone 4 mg/ml Vial SLOW IVP SCH (11:22)
[2020-03-26] MEDS: Aspirin 325 mg Enteric Coated Tablet PO SCH (11:24)
[2020-03-26] MEDS: Gabapentin 300 MG CAP PO SCH ×3 (11:24→21:15)
[2020-03-26] MEDS: FLUoxetine HCl 20 MG CAP PO SCH (11:26)
[2020-03-26] MEDS: Enoxaparin Sodium 100 MG/ML SYRINGE SC SCH ×2 (11:26→21:17)
[2020-03-26] MEDS: Cholecalciferol 1,000 UNITS (25 MCG) TAB PO SCH (11:26)
[2020-03-26] MEDS: Lisinopril 5 MG TAB PO SCH (11:27)
[2020-03-26] MEDS: Metoprolol Tartrate 25 MG TAB PO SCH ×3 (11:27→21:47)
[2020-03-26] MEDS: Lorazepam 0.5 MG TAB PO PRN ×2 (11:31→22:30)
[2020-03-26] MEDS: HumaLOG 300 UNITS/3 ML VIAL SC PRN ×2 (11:41→17:53)
[2020-03-26] MEDS ORDERED: REMDESIVIR (EUA) 200 MG in Sodium Chloride 0.9% 250 ML 210 ML IV SCH (13:30)
--- NOTE | 2020-03-26 13:54 | CON ---
DATE OF CONSULTATION: 03/26/2020 CHIEF COMPLAINT: COVID pneumonia. HISTORY OF PRESENT ILLNESS: Mr. Holland is a 80-year-old gentleman, resident of a halfway where he has comorbid diagnoses including dementia, bipolar disease, diabetes, and coronary artery disease. The patient was found to have COVID several days prior to admission, although the exact date of symptom onset is unclear. He began to have increasing confusion and increasing shortness of breath, at which time, he was transferred to the hospital. He was seen in Infectious Disease consultation and was receiving azithromycin and Decadron, but not yet on remdesivir or convalescent plasma. He has had a chest x-ray and CAT scan demonstrating very extensive bilateral alveolar filling consolidations. Today, he became more short of breath and required more oxygen and is currently in the IMCU. His oxygen demands to have worsened and he is now on BiPAP with FiO2 of 60%. He has symptoms of shortness of breath as well as cough. He has not had any fever. Because of worsening pulmonary status, Pulmonary Service is consulted for additional medical assistance. SOCIAL HISTORY: The patient is a 80-year-old gentleman. He is a nonsmoker. MEDICATIONS: His halfway medication list and current medication list have been reviewed. ALLERGIES: HE HAS NO MEDICATION ALLERGIES. PAST HISTORY: Remarkable for known atherosclerotic vascular disease with previous stent placement. He has dementia, bipolar disease, diabetes, hypertension, and dyslipidemia. PHYSICAL EXAMINATION: VITAL SIGNS: Current blood pressure 111/69, heart rate is 82, and saturation 92% on BiPAP with FiO2 of 0.6. BMI is 26.8. Height 5 feet and 10 inches, weight 186. GENERAL: He is an elderly gentleman, mildly tachypneic. He knows he is in the hospital. HEENT: Shows no JVD or carotid bruit. He has no adenopathy. LUNGS: Show bilateral coarse rhonchi in all lung sanchez. He is mildly tachypneic with increased work of breathing. HEART: Regular rate and rhythm. There is no audible murmur or gallop. ABDOMEN: Soft. There is no organomegaly. There is no guarding. EXTREMITIES: Show no cyanosis, clubbing, or edema. LABORATORY DATA: Chest x-ray and CT revealed bilateral dense patchy consolidations consistent with COVID. White count 15,500, hemoglobin is 12.1, hematocrit is 35.8, and platelet count of 441,000. Blood gas includes pH of 7.4, CO2 of 31, pO2 of 52, and bicarb is 19. This is consistent with a metabolic acidosis and appropriate respiratory compensation. Electrolytes include sodium 130, potassium 4.9, chloride 96, CO2 is 20, BUN 58, and creatinine 1.2. IMPRESSION: 1. COVID pneumonia. Quite severe based on radiographic findings. Oxygen demands are worsening and he has gone from simple nasal cannula to BiPAP at 60%. We still have a little bit of room to maneuver, but at this pace may well require ventilatory support. He has been on azithromycin and steroids. He has not received remdesivir or convalescent serum. 2. History of atherosclerotic vascular disease. 3. History of dementia. 4. History of diabetes. PLAN: He will continue with current oxygen supplementation and additional adjustment as needed. We might be able to do better with a high-flow nasal cannula, then begin with a BiPAP. If necessary we can pursue ventilatory support, although prognosis is associated with that at his age and with his comorbid medical issues, it is quite poor. I think it is reasonable to give remdesivir. I will try to discuss this with the Hospitalist Service. Critical care time, 41 minutes. Job ID: [id number]
--- NOTE | 2020-03-26 16:17 | PDOC.HOSPP ---
- Subjective Encounter Date: 03/26/20 Encounter Time: 16:16 Subjective: Events from last night reviewed. Patient became more acutely short of breath after he took his high flow. He deteriorated to the point that he was transferred to [facility]. He is now on BiPAP and pulmonary services are following him. - Objective Vital Signs & Weight: Vital Signs (12 hours) Pulse Resp BP BP Pulse Ox 03/26/20 11:27 82 03/26/20 08:00 92 L 03/26/20 06:15 82 33 H 105/66 94 L 03/26/20 05:25 89 33 H 114/56 L 93 L 03/26/20 04:24 94 L Weight Admit Weight 186 lb 12.8 oz Weight 186 lb 12.8 oz Most Recent Monitor Data Heart Rate from ECG 82 NIBP 96/57 NIBP BP-Mean 70 Respiration from ECG 27 SpO2 93 I&O: 03/25/20 03/26/20 03/27/20 06:59 06:59 05:59 Intake Total 2214 Balance 2214 Result Diagrams: 03/26/20 04:50 03/26/20 04:50 Additional Labs: Accuchecks 03/26/20 03/26/20 03/25/20 11:46 07:13 21:38 POC Glucose 175 H 187 H 150 H 03/25/20 03/25/20 03/24/20 17:15 11:44 21:43 POC Glucose 203 H 199 H 234 H 03/24/20 16:39 POC Glucose 208 H Radiology Reviewed by me: Yes EKG Reviewed by me: Yes Hospitalist ROS - Review of Systems ROS unobtainable: due to mental status Respiratory: reports: cough, shortness of breath, SOB with excertion, sputum, wheezing - Medication Medications: Active Medications Generic Name Dose Route Start Last Admin Trade Name Freq PRN Reason Stop Dose Admin Aspirin 325 mg 03/24/20 09:00 03/26/20 11:24 Aspirin 325 Mg Enteric Coated Tablet PO 325 mg DAILY MIKAELA Administration Atorvastatin Calcium 40 mg 03/24/20 21:00 03/25/20 21:07 Atorvastatin Calcium 40 Mg Tab PO 40 mg HS MIKAELA Administration Cholecalciferol 1,000 units 03/25/20 09:00 03/26/20 11:26 Cholecalciferol 1,000 Units (25 Mcg) Tab PO 1,000 units DAILY MIKAELA Administration Dexamethasone 6 mg 03/24/20 09:00 03/26/20 11:22 Dexamethasone 4 Mg/Ml Vial SLOW IVP 6 mg DAILY MIKAELA Administration Divalproex Sodium 500 mg 03/24/20 21:00 03/25/20 21:06 Divalproex Sodium Er 500 Mg Tablet PO 500 mg HS MIKAELA Administration Enoxaparin Sodium 90 mg 03/24/20 09:00 03/26/20 11:26 Enoxaparin Sodium 100 Mg/Ml Syringe SC 90 mg 0900,2100 MIKAELA Administration Fluoxetine HCl 20 mg 03/25/20 09:00 03/26/20 11:26 Fluoxetine Hcl 20 Mg Cap PO 20 mg DAILY MIKAELA Administration Gabapentin 300 mg 03/24/20 15:00 03/26/20 11:24 Gabapentin 300 Mg Cap PO 300 mg TID MIKAELA Administration Ceftriaxone Sodium 1 gm/ 100 mls @ 200 mls/hr 03/24/20 21:00 03/25/20 21:06 Sodium Chloride IVPB 100 mls Q24HR MIKAELA Administration Azithromycin 500 mg/ Sodium 250 mls @ 250 mls/hr 03/24/20 21:00 03/25/20 21:38 Chloride IVPB 250 mls Q24HR MIKAELA Administration Insulin Human Lispro 0 units 03/24/20 18:11 03/26/20 11:41 Humalog 300 Units/3 Ml Vial SC 2 unit .MILD SLIDING SCALE PRN Administration Mild Correctional Scale Insulin Human Lispro 0 units 03/24/20 18:11 03/24/20 21:56 Humalog 300 Units/3 Ml Vial SC 2 unit .BEDTIME SLIDING SC PRN Administration Bedtime Correctional Scale Lisinopril 5 mg 03/24/20 09:00 03/26/20 11:27 Lisinopril 5 Mg Tab PO Not Given DAILY MIKAELA Lorazepam 0.5 mg 03/26/20 10:23 03/26/20 11:31 Lorazepam 0.5 Mg Tab PO 0.5 mg Q6H PRN Administration Anxiety Metoprolol Tartrate 12.5 mg 03/24/20 09:00 03/26/20 11:27 Metoprolol Tartrate 25 Mg Tab PO 12.5 mg BID MIKAELA Administration Quetiapine Fumarate 25 mg 03/24/20 21:00 03/26/20 11:24 Quetiapine Fumarate 25 Mg Tab PO 25 mg BID MIKAELA Administration Sodium Chloride 10 ml 03/24/20 09:00 03/26/20 11:24 Flush - Normal Saline 10 Ml Syringe IVF 10 ml Q12HR MIKAELA Administration - Exam General Appearance: ill appearing Eye: PERRL, anicteric sclera ENT: normocephalic atraumatic, dry oral mucosa Neck: supple, symmetric, no thyromegaly, JVD Heart: RRR, no murmur, no gallops, no rubs Respiratory: normal chest expansion, tachypneic, wheezes Gastrointestinal: soft, non-tender, non-distended, normal bowel sounds, no pal pable masses, no hepatomegaly, no splenomegaly Skin: normal turgor Neurological: cranial nerve grossly intact, no focal deficits Musculoskeletal: normal tone, normal strength Psychiatric: flat affect, somnolent, lethargic Hosp A/P (1) Respiratory failure with hypoxia Code(s): J96.91 - RESPIRATORY FAILURE, UNSPECIFIED WITH HYPOXIA Status: Acute Qualifiers: Chronicity: acute Qualified Code(s): J96.01 - Acute respiratory failure with hypoxia Plan: This has worsened slightly. He is now on BiPAP. We will continue supportive care likely doing. (2) Pneumonia due to COVID-19 virus Code(s): U07.1 - COVID-19; J12.89 - OTHER VIRAL PNEUMONIA Status: Acute (3) Dementia Code(s): F03.90 - UNSPECIFIED DEMENTIA WITHOUT BEHAVIORAL DISTURBANCE Status: Acute Qualifiers: Dementia type: vascular dementia Dementia behavioral disturbance: with beh avioral disturbance Qualified Code(s): F01.51 - Vascular dementia with be havioral disturbance (4) Diabetes Code(s): E11.9 - TYPE 2 DIABETES MELLITUS WITHOUT COMPLICATIONS Status: Acute Qualifiers: Diabetes mellitus type: type 2 Diabetes mellitus halfway insulin use: with terminal operator use Diabetes mellitus complication status: with kidney complications Diabetes mellitus complication detail: with microalbuminuria Qualified Code(s): E11.29 - Type 2 diabetes mellitus with other diabetic kidney complication; R80.9 - Proteinuria, unspecified; Z79.4 - terminal operator (current) use of insulin (5) NSTEMI (non-ST elevated myocardial infarction) Code(s): I21.4 - NON-ST ELEVATION (NSTEMI) MYOCARDIAL INFARCTION Status: Acute - Plan #1 Acute hypoxic respiratory failure. Likely secondary to COVID-19 pneumonia. We will utilize O2 supplementation as needed. 03/25/2020. His respiratory status appears to have worsened overnight. He is now on high flow nasal cannula. There appears to be now elements of pleural effusion likely from iatrogenic volume resuscitation from admission. We will keep him on high flow nasal cannula and downgrade as tolerated. 03/26/2020. This has worsened significantly to the point that he is now on BiPAP since last night. He is being managed now by pulmonary services. His prognosis is guarded at best. 2. COVID-19 pneumonia. He reportedly was diagnosed at his intermediate and he started declining prompting this transfer to the hospital. Chest x-ray obtained here on admission consistent with Covid pneumonia. He is on empiric IV antibiotics and ID services evaluation has been obtained. I will defer to them about further management. 03/25/2020. Continue treatment for the Covid pneumonia. 03/26/2020. Continue supportive care with antibiotic. Will discuss with ID about considering remdesivir. 3. Diabetes type 2. Accu-Cheks before meals and at bedtime. We will utilize insulin sliding scale coverage. 03/25/2020. Diabetes type 2 now complicated by steroid use for his Covid. We will continue to utilize sliding scale coverage. 4. Hyponatremia. Likely pseudohyponatremia from elevated blood glucose. We will correct this. 5. Elevated troponin. He did not report any chest pain. This is likely type II secondary to COVID-19 pneumonia and respiratory failure. 03/25/2020. He has been evaluated by geology technician who recommends medical management.
[2020-03-26] MEDS: cefTRIAXone\\ROCEPHIN 1 GM in Sodium Chloride 0.9% 100 ML IVPB SCH (21:14)
[2020-03-26] MEDS: Azithromycin 500 MG in Sodium Chloride 0.9% 250 ML 250 ML IVPB SCH (21:15)
[2020-03-26] MEDS: Atorvastatin Calcium 40 MG TAB PO SCH (21:17)
[2020-03-27 07:11] LABS: #Lymphocytes 0.8 thou/uL (1.20-3.40); #Monocytes 0.6 thou/uL (0.11-0.59); #Neutrophils 13.2 thou/uL (1.40-6.50); %Basophils 0.3 % (0.0-1.0); %Eosinophils 0.1 % (0.0-10.0); %Lymphocytes 5.2 % (21.0-51.0); %Monocytes 3.8 % (0.0-10.0); %Neutrophils 90.6 % (42.0-75.0); Mean Corpuscular Hemoglobin 29.7 pg (27.0-31.0); Mean Platelet Volume 7.1 fL (7.4-10.4); Platelet Count 385 thou/uL (130-400); RBC Distribution Width 12.7 % (11.5-14.5); White Blood Cell (WBC) Count 14.5 thou/uL (4.8-10.8)
[2020-03-27 07:32] LABS: Anion Gap 19 mmol/L (10-20); BUN (Urea Nitrogen) 75 mg/dL (8.4-25.7); Calc. Creatinine Clearance 59 mL/min (70-130); Calcium 8.7 mg/dL (7.8-10.44); Carbon Dioxide 18 mmol/L (23-31); Chloride 98 mmol/L (98-107); Estimated GFR-MDRD 56; Glucose 187 mg/dL (83-110); Magnesium 2.4 mg/dL (1.6-2.6); Potassium 5.1 mmol/L (3.5-5.1); Sodium 130 mmol/L (136-145)
[2020-03-27] MEDS: Aspirin 325 mg Enteric Coated Tablet PO SCH ×2 (07:42→08:51)
[2020-03-27] MEDS: Tamsulosin HCl 0.4 MG CAP PO SCH ×2 (07:42→08:52)
[2020-03-27] MEDS: Gabapentin 300 MG CAP PO SCH ×3 (07:42→23:08)
[2020-03-27] MEDS: Enoxaparin Sodium 100 MG/ML SYRINGE SC SCH ×2 (07:42→20:16)
[2020-03-27] MEDS: FLUoxetine HCl 20 MG CAP PO SCH ×2 (07:43→08:51)
[2020-03-27] MEDS: Cholecalciferol 1,000 UNITS (25 MCG) TAB PO SCH ×2 (07:43→08:51)
[2020-03-27] MEDS: Dexamethasone 4 mg/ml Vial SLOW IVP SCH (07:43)
[2020-03-27] MEDS: Lorazepam 0.5 MG TAB PO PRN (08:10)
[2020-03-27] MEDS: Lisinopril 5 MG TAB PO SCH (08:49)
[2020-03-27] MEDS: Metoprolol Tartrate 25 MG TAB PO SCH ×2 (08:49→23:09)
--- NOTE | 2020-03-27 09:54 | PRG ---
DATE OF SERVICE: 03/27/2020 SUBJECTIVE: Mr. Holland continues to struggle currently on BiPAP with FiO2 of 70%. He is noted to have significant work of breathing. We would clearly like to avoid intubation, although does not appear to be favorable direction at this point in time. OBJECTIVE: VITAL SIGNS: Blood pressure 117/90, heart rate is 90, and current saturation 92 on BiPAP therapy. GENERAL: He is restless, mildly diaphoretic and has increased work of breathing. LUNGS: Bilateral rhonchi are noted on lung exam. HEART: Regular rate and rhythm. ABDOMEN: Soft. There is no organomegaly. Bowel sounds are normal. EXTREMITIES: He has no edema. There is no cords or tenderness. LABORATORY DATA: White count 14,500, hemoglobin is 11 with hematocrit 33.3, and platelet count 385,000. Chemistry panel includes sodium 130, potassium 5.1, chloride 98, CO2 is 18, BUN 75, and creatinine 1.4. Creatinine is stable. BUN is increasing, probably secondary to steroid therapy. IMAGING DATA: Chest x-ray today demonstrates extensive bilateral opacification with near complete whiteout of all lung sanchez. It is not significantly changed compared to the previous film of 03/25/2020. IMPRESSION: COVID pneumonia with impending respiratory failure on BiPAP. PLAN: We will continue current therapies, although I am pessimistic about his ability to avoid intubation. We will continue to observe through the day, but prepared to proceed with transfer to the acute ICU component with intubation if necessary. Critical care time, 32 minutes. Job ID: [id number]
--- NOTE | 2020-03-27 10:22 | RAD ---
PORTABLE CHEST: 03/27/20 PROVIDED CLINICAL HISTORY: Shortness of breath. COMPARISON: 03/25/2020 FINDINGS: Significant interval change with respect to the prior examination is not apparent. IMPRESSION: As above. POS: TOM
[2020-03-27] MEDS ORDERED: REMDESIVIR (EUA) 100 MG in Sodium Chloride 0.9% 250 ML 230 ML IV SCH (13:30)
--- NOTE | 2020-03-27 15:36 | PDOC.HOSPP ---
- Subjective Encounter Date: 03/27/20 Encounter Time: 15:34 non-verbal Subjective: 80-year-old patient admitted to the hospital for Covid pneumonia. He is now in respiratory failure and requiring BiPAP. He is not doing very well at this minute. I am thinking he will probably need more respiratory support in the near future. We will continue BiPAP at this time. We appreciate pulmonary services for their help. - Objective Vital Signs & Weight: Vital Signs (12 hours) Temp Pulse Pulse Ox 03/27/20 13:00 97.0 F L 03/27/20 09:40 97.0 F L 03/27/20 08:49 82 03/27/20 08:00 98 03/27/20 06:00 97.1 F L Weight Admit Weight 186 lb 12.8 oz Weight 186 lb 12.8 oz Most Recent Monitor Data Heart Rate from ECG 82 NIBP 109/68 NIBP BP-Mean 81 Respiration from ECG 29 SpO2 100 I&O: 03/26/20 03/27/20 03/28/20 07:59 06:59 06:59 Intake Total Output Total Balance Result Diagrams: 03/27/20 06:53 03/27/20 06:53 Additional Labs: Accuchecks 03/27/20 03/27/20 03/26/20 12:13 05:57 20:54 POC Glucose 188 H 182 H 195 H 03/26/20 18:03 POC Glucose 156 H Radiology Reviewed by me: Yes EKG Reviewed by me: Yes Hospitalist ROS - Review of Systems ROS unobtainable: due to mental status Constitutional: reports: fever, weakness, malaise Respiratory: reports: cough, shortness of breath, SOB with excertion, wheezing Gastrointestinal: reports: nausea - Medication Medications: Active Medications Generic Name Dose Route Start Last Admin Trade Name Freq PRN Reason Stop Dose Admin Aspirin 325 mg 03/24/20 09:00 03/27/20 08:51 Aspirin 325 Mg Enteric Coated Tablet PO Not Given DAILY MIKAELA Atorvastatin Calcium 40 mg 03/24/20 21:00 03/26/20 21:17 Atorvastatin Calcium 40 Mg Tab PO 40 mg HS MIKAELA Administration Cholecalciferol 1,000 units 03/25/20 09:00 03/27/20 08:51 Cholecalciferol 1,000 Units (25 Mcg) Tab PO Not Given DAILY MIKAELA Dexamethasone 6 mg 03/24/20 09:00 03/27/20 07:43 Dexamethasone 4 Mg/Ml Vial SLOW IVP 6 mg DAILY MIKAELA Administration Divalproex Sodium 500 mg 03/24/20 21:00 03/26/20 21:17 Divalproex Sodium Er 500 Mg Tablet PO 500 mg HS MIKAELA Administration Enoxaparin Sodium 90 mg 03/24/20 09:00 03/27/20 07:42 Enoxaparin Sodium 100 Mg/Ml Syringe SC 90 mg 0900,2100 MIKAELA Administration Fluoxetine HCl 20 mg 03/25/20 09:00 03/27/20 08:51 Fluoxetine Hcl 20 Mg Cap PO Not Given DAILY MIKAELA Gabapentin 300 mg 03/24/20 15:00 03/27/20 14:00 Gabapentin 300 Mg Cap PO Not Given TID MIKAELA Ceftriaxone Sodium 1 gm/ 100 mls @ 200 mls/hr 03/24/20 21:00 03/26/20 21:14 Sodium Chloride IVPB 100 mls Q24HR MIKAELA Administration Azithromycin 500 mg/ Sodium 250 mls @ 250 mls/hr 03/24/20 21:00 03/26/20 21:15 Chloride IVPB 250 mls Q24HR MIKAELA Administration Insulin Human Lispro 0 units 03/24/20 18:11 03/26/20 17:53 Humalog 300 Units/3 Ml Vial SC 2 units .MILD SLIDING SCALE PRN Administration Mild Correctional Scale Insulin Human Lispro 0 units 03/24/20 18:11 03/24/20 21:56 Humalog 300 Units/3 Ml Vial SC 2 unit .BEDTIME SLIDING SC PRN Administration Bedtime Correctional Scale Lisinopril 5 mg 03/24/20 09:00 03/27/20 08:49 Lisinopril 5 Mg Tab PO Not Given DAILY MIKAELA Lorazepam 0.5 mg 03/26/20 10:23 03/26/20 22:30 Lorazepam 0.5 Mg Tab PO 0.5 mg Q6H PRN Administration Anxiety Metoprolol Tartrate 12.5 mg 03/24/20 09:00 03/27/20 08:49 Metoprolol Tartrate 25 Mg Tab PO Not Given BID MIKAELA Quetiapine Fumarate 25 mg 03/24/20 21:00 03/27/20 08:50 Quetiapine Fumarate 25 Mg Tab PO Not Given BID MIKAELA Sodium Chloride 10 ml 03/24/20 09:00 03/27/20 07:43 Flush - Normal Saline 10 Ml Syringe IVF 10 ml Q12HR MIKAELA Administration Tamsulosin HCl 0.4 mg 03/27/20 09:00 03/27/20 08:52 Tamsulosin Hcl 0.4 Mg Cap PO Not Given DAILY MIKAELA - Exam General Appearance: awake alert Eye: PERRL ENT: normocephalic atraumatic, no oropharyngeal lesions, dry oral mucosa Neck: supple, symmetric, no JVD, no lymphadenopathy Heart: RRR, no murmur, normal peripheral pulses Respiratory: rales, tachypneic, wheezes Gastrointestinal: soft, non-tender, non-distended, normal bowel sounds Neurological: cranial nerve grossly intact, normal sensation to touch Musculoskeletal: normal tone, generalized weakness Psychiatric: somnolent, lethargic Hosp A/P (1) Respiratory failure with hypoxia Code(s): J96.91 - RESPIRATORY FAILURE, UNSPECIFIED WITH HYPOXIA Status: Acute Qualifiers: Chronicity: acute Qualified Code(s): J96.01 - Acute respiratory failure with hypoxia Plan: He is on BiPAP. We will continue this for now. (2) Pneumonia due to COVID-19 virus Code(s): U07.1 - COVID-19; J12.89 - OTHER VIRAL PNEUMONIA Status: Acute Plan: Continue supportive care like with doing right now. Prognosis appears to be poor. 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 Likely secondary to COVID-19 pneumonia. We will utilize O2 supplementation as needed. 03/25/2020. His respiratory status appears to have worsened overnight. He is now on high flow nasal cannula. There appears to be now elements of pleural effusion likely from iatrogenic volume resuscitation from admission. We will keep him on high flow nasal cannula and downgrade as tolerated. 03/26/2020. This has worsened significantly to the point that he is now on BiPAP since last night. He is being managed now by pulmonary services. His prognosis is guarded at best. 03/27/2020. He remains on BiPAP but he is doing poorly. We appreciate pulmonary's help. 2. COVID-19 pneumonia. [facility] and he started declining prompting this transfer to the hospital. Chest x-ray obtained here on admission consistent with Covid pneumonia. He is on empiric IV antibiotics and ID services evaluation has been obtained. I will defer to them about further management. 03/25/2020. Continue treatment for the Covid pneumonia. 03/26/2020. Continue supportive care with antibiotic. Will discuss with ID about considering remdesivir. 03/27/2020. Continue supportive care above. 3. Diabetes type 2. Accu-Cheks before meals and at bedtime. We will utilize insulin sliding scale coverage. 03/25/2020. Diabetes type 2 now complicated by steroid use for his Covid. We will continue to utilize sliding scale coverage. 4. Hyponatremia. Likely pseudohyponatremia from elevated blood glucose. We will correct this. 5. Elevated troponin. He did not report any chest pain. This is likely type II secondary to COVID-19 pneumonia and respiratory failure. 03/25/2020. He has been evaluated by hide and skin fleshing machine operator who recommends medical management.
[2020-03-27] MEDS: HumaLOG 300 UNITS/3 ML VIAL SC PRN (16:57)
[2020-03-27] MEDS ORDERED: Morphine 2 MG/ML VIAL SLOW IVP PRN (18:50)
[2020-03-27] MEDS: cefTRIAXone\\ROCEPHIN 1 GM in Sodium Chloride 0.9% 100 ML IVPB SCH (20:15)
[2020-03-27] MEDS: Azithromycin 500 MG in Sodium Chloride 0.9% 250 ML 250 ML IVPB SCH (21:48)
[2020-03-27] MEDS: Atorvastatin Calcium 40 MG TAB PO SCH (23:08)
[2020-03-28] MEDS ORDERED: Lactated Ringer's 1,000 ML IV SCH (08:00)
[2020-03-28] MEDS: Enoxaparin Sodium 100 MG/ML SYRINGE SC SCH ×2 (09:10→21:01)
[2020-03-28] MEDS: Dexamethasone 4 mg/ml Vial SLOW IVP SCH (09:11)
[2020-03-28] MEDS: Aspirin 325 mg Enteric Coated Tablet PO SCH (09:12)
[2020-03-28] MEDS: Tamsulosin HCl 0.4 MG CAP PO SCH (09:12)
[2020-03-28] MEDS: Lisinopril 5 MG TAB PO SCH (09:12)
[2020-03-28] MEDS: Gabapentin 300 MG CAP PO SCH ×3 (09:13→22:55)
[2020-03-28] MEDS: FLUoxetine HCl 20 MG CAP PO SCH (09:13)
[2020-03-28] MEDS: Cholecalciferol 1,000 UNITS (25 MCG) TAB PO SCH (09:13)
[2020-03-28] MEDS: Metoprolol Tartrate 25 MG TAB PO SCH ×2 (09:13→22:56)
[2020-03-28 09:22] LABS: Hemoglobin 10.8 g/dL (14.0-18.0); Platelet Count 431 thou/uL (130-400)
[2020-03-28] MEDS: methylPREDNISolone Sod Succ 40 MG VIAL IVP SCH ×2 (11:55→18:43)
--- NOTE | 2020-03-28 11:58 | PRG ---
DATE OF SERVICE: 03/28/2020 SUBJECTIVE: Brenden Holland is a 80-year-old bipolar gentleman from the group home, remains on BiPAP OBJECTIVE: VITAL SIGNS: his temperature is 97, pulse 86, blood pressure 127/102, respiratory rate 18. He is unable to come off the BiPAP without desatting. X-ray shows worsening diffuse infiltrates, ARDS. CHEST: No wheezing, no crackles. CARDIAC: Normal S1 and S2. No gallops. ABDOMEN: No masses. LABORATORY DATA: His H and H are stable. His white count 14,000, H and H 11 and 33, platelet count 385. Chemistry shows creatinine 1.25, BUN 75, and glucose 150. ASSESSMENT: Parry positive pneumonia, acute respiratory distress syndrome, renal failure, and respiratory failure. He is on Zithromax, ceftriaxone, high-dose steroids. If condition not improved by tomorrow, he is going to get intubated, vent support. Family wants all supportive care. One-half hour of critical care time. Job ID: [id number]
[2020-03-28 12:35] VITALS: BMI 26.4
--- NOTE | 2020-03-28 14:38 | PDOC.HOSPP ---
- Subjective Encounter Date: 03/28/20 Encounter Time: 14:38 Subjective: Patient was seen and evaluated. He remains very confused and disoriented. He seems to be stable so far on the BiPAP. He does desaturate whenever they tried to take it off for few minutes. He is being evaluated by pulmonary services and I will defer to them about more interventions. His prognosis is guarded at best. He does look very dehydrated on exam. He has a sodium of 430. I am going to start him on IV fluid at a low dose. - Objective Vital Signs & Weight: Vital Signs (12 hours) Temp Pulse Pulse Ox 03/28/20 13:48 96 03/28/20 09:12 86 03/28/20 08:00 94 L 03/28/20 05:00 97.4 F L 03/28/20 02:54 86 Weight Admit Weight 186 lb 12.8 oz Weight 184 lb 8 oz Most Recent Monitor Data Heart Rate from ECG 95 NIBP 124/83 NIBP BP-Mean 96 Respiration from ECG 28 SpO2 99 I&O: 03/27/20 03/28/20 03/29/20 06:59 06:59 06:59 Intake Total 450 Output Total 600 Balance -150 Result Diagrams: 03/28/20 09:10 03/28/20 09:09 Additional Labs: Accuchecks 03/28/20 03/27/20 03/27/20 06:08 19:45 16:50 POC Glucose 150 H 221 H 233 H Radiology Reviewed by me: Yes EKG Reviewed by me: Yes Hospitalist ROS - Review of Systems ROS unobtainable: due to mental status Constitutional: reports: weakness, malaise Respiratory: reports: cough, shortness of breath, wheezing - Medication Medications: Active Medications Generic Name Dose Route Start Last Admin Trade Name Freq PRN Reason Stop Dose Admin Aspirin 325 mg 03/24/20 09:00 03/28/20 09:12 Aspirin 325 Mg Enteric Coated Tablet PO 325 mg DAILY MIKAELA Administration Atorvastatin Calcium 40 mg 03/24/20 21:00 03/27/20 23:08 Atorvastatin Calcium 40 Mg Tab PO 40 mg HS MIKAELA Administration Cholecalciferol 1,000 units 03/25/20 09:00 03/28/20 09:13 Cholecalciferol 1,000 Units (25 Mcg) Tab PO 1,000 units DAILY MIKAELA Administration Divalproex Sodium 500 mg 03/24/20 21:00 03/27/20 23:08 Divalproex Sodium Er 500 Mg Tablet PO 500 mg HS MIKAELA Administration Enoxaparin Sodium 90 mg 03/24/20 09:00 03/28/20 09:10 Enoxaparin Sodium 100 Mg/Ml Syringe SC 90 mg 0900,2100 MIKAELA Administration Fluoxetine HCl 20 mg 03/25/20 09:00 03/28/20 09:13 Fluoxetine Hcl 20 Mg Cap PO 20 mg DAILY MIKAELA Administration Gabapentin 300 mg 03/24/20 15:00 03/28/20 09:13 Gabapentin 300 Mg Cap PO 300 mg TID MIKAELA Administration Ceftriaxone Sodium 1 gm/ 100 mls @ 200 mls/hr 03/24/20 21:00 03/27/20 20:15 Sodium Chloride IVPB 100 mls Q24HR MIKAELA Administration Azithromycin 500 mg/ Sodium 250 mls @ 250 mls/hr 03/24/20 21:00 03/27/20 21:48 Chloride IVPB 250 mls Q24HR MIKAELA Administration Lactated Ringer's 1,000 mls @ 50 mls/hr 03/28/20 08:00 03/28/20 09:10 Lactated Ringer's IV 1,000 mls .Q20H MIKAELA Administration Insulin Human Lispro 0 units 03/24/20 18:11 03/27/20 16:57 Humalog 300 Units/3 Ml Vial SC 3 units .MILD SLIDING SCALE PRN Administration Mild Correctional Scale Insulin Human Lispro 0 units 03/24/20 18:11 03/24/20 21:56 Humalog 300 Units/3 Ml Vial SC 2 unit .BEDTIME SLIDING SC PRN Administration Bedtime Correctional Scale Lisinopril 5 mg 03/24/20 09:00 03/28/20 09:12 Lisinopril 5 Mg Tab PO 5 mg DAILY MIKAELA Administration Lorazepam 0.5 mg 03/26/20 10:23 03/26/20 22:30 Lorazepam 0.5 Mg Tab PO 0.5 mg Q6H PRN Administration Anxiety Methylprednisolone Sodium Succinate 40 mg 03/28/20 12:00 03/28/20 11:55 Methylprednisolone Sod Succ 40 Mg Vial IVP 40 mg Q6HR MIKAELA Administration Metoprolol Tartrate 12.5 mg 03/24/20 09:00 03/28/20 09:13 Metoprolol Tartrate 25 Mg Tab PO 12.5 mg BID MIKAELA Administration Quetiapine Fumarate 25 mg 03/24/20 21:00 03/28/20 09:18 Quetiapine Fumarate 25 Mg Tab PO 25 mg BID MIKAELA Administration Sodium Chloride 10 ml 03/24/20 09:00 03/28/20 09:18 Flush - Normal Saline 10 Ml Syringe IVF 10 ml Q12HR MIKAELA Administration Tamsulosin HCl 0.4 mg 03/27/20 09:00 03/28/20 09:12 Tamsulosin Hcl 0.4 Mg Cap PO 0.4 mg DAILY MIKAELA Administration - Exam General Appearance: NAD, awake alert, ill appearing Eye: PERRL ENT: normocephalic atraumatic, no oropharyngeal lesions, dry oral mucosa Neck: supple, symmetric, no JVD, no lymphadenopathy Heart: RRR, no murmur Respiratory: CTAB, no rales, no ronchi, wheezes Gastrointestinal: soft, non-tender, non-distended, normal bowel sounds, no palpable masses, no hepatomegaly, no splenomegaly, no guarding Neurological: no weakness Psychiatric: normal affect, oriented to person Hosp A/P (1) Respiratory failure with hypoxia Code(s): J96.91 - RESPIRATORY FAILURE, UNSPECIFIED WITH HYPOXIA Status: Acute Qualifiers: Chronicity: acute Qualified Code(s): J96.01 - Acute respiratory failure with hypoxia (2) Pneumonia due to COVID-19 virus Code(s): U07.1 - COVID-19; J12.89 - OTHER VIRAL PNEUMONIA Status: Acute (3) Dementia Code(s): F03.90 - UNSPECIFIED DEMENTIA WITHOUT BEHAVIORAL DISTURBANCE Status: Acute Qualifiers: Dementia type: vascular dementia Dementia behavioral disturbance: with behavioral disturbance Qualified Code(s): F01.51 - Vascular dementia with behavioral disturbance (4) Diabetes Code(s): E11.9 - TYPE 2 DIABETES MELLITUS WITHOUT COMPLICATIONS Status: Acute Qualifiers: Diabetes mellitus type: type 2 Diabetes mellitus watermelon harvesting supervisor insulin use: with watermelon harvesting supervisor use Diabetes mellitus complication status: with kidney complications Diabetes mellitus complication detail: with microalbuminuria Qualified Code(s): E11.29 - Type 2 diabetes mellitus with other diabetic kidney complication; R80.9 - Proteinuria, unspecified; Z79.4 - MCC (current) use of insulin (5) NSTEMI (non-ST elevated myocardial infarction) Code(s): I21.4 - NON-ST ELEVATION (NSTEMI) MYOCARDIAL INFARCTION Status: Acute - Plan #1 Acute hypoxic respiratory failure. Likely secondary to COVID-19 pneumonia. We will utilize O2 supplementation as needed. 03/25/2020. His respiratory status appears to have worsened overnight. He is now on high f low nasal cannula. There appears to be now elements of pleural effusion likely from iatrogenic volume resuscitation from admission. We will keep him on high flow nasal cannula and downgrade as tolerated. 03/26/2020. This has worsened significantly to the point that he is now on BiPAP since last night. He is being managed now by pulmonary services. His prognosis is guarded at best. 03/27/2020. He remains on BiPAP but he is doing poorly. We appreciate pulmonary's help. 03/28/2020. He is still on the BiPAP. We appreciate pulmonary/critical care for their help. We will continue BiPAP and wean as tolerated. His prognosis appears guarded at best. 2. COVID-19 pneumonia. He reportedly was diagnosed at his intermediate and he started declining prompting this transfer to the hospital. Chest x-ray obtained here on admission consistent with Covid pneumonia. He is on empiric IV antibiotics and ID services evaluation has been obtained. I will defer to them about further management. 03/25/2020. Continue treatment for the Covid pneumonia. 03/26/2020. Continue supportive care with antibiotic. Will discuss with ID about considering remdesivir. 03/27/2020. Continue supportive care above. 3. Diabetes type 2. Accu-Cheks before meals and at bedtime. We will utilize insulin sliding scale coverage. 03/25/2020. Diabetes type 2 now complicated by steroid use for his Covid. We will continue to utilize sliding scale coverage. 4. Hyponatremia. Likely pseudohyponatremia from elevated blood glucose. We will correct this. 5. Nonischemic elevated troponin. He did not report any chest pain. This is likely type II secondary to COVID-19 pneumonia and respiratory failure. This is nonischemic. No further work-up required. 03/25/2020. He has been evaluated by plant care worker who recommends medical management.
[2020-03-28] MEDS ORDERED: Dextrose 5% in Water 1,000 ML IV SCH (14:45)
[2020-03-28] MEDS: Sodium Chloride 0.9% 1,000 ML IV SCH (16:08)
[2020-03-28] MEDS: Mometasone 200 MCG/Formoterol 5 MCG 120 PUFF INHALER INH SCH (19:23)
[2020-03-28] MEDS: cefTRIAXone\\ROCEPHIN 1 GM in Sodium Chloride 0.9% 100 ML IVPB SCH (21:01)
[2020-03-28] MEDS: Azithromycin 500 MG in Sodium Chloride 0.9% 250 ML 250 ML IVPB SCH (22:10)
[2020-03-28] MEDS: Atorvastatin Calcium 40 MG TAB PO SCH (22:13)
[2020-03-29] MEDS: methylPREDNISolone Sod Succ 40 MG VIAL IVP SCH ×3 (00:33→12:29)
[2020-03-29 03:59] LABS: #Lymphocytes 0.4 thou/uL (1.20-3.40); #Monocytes 0.6 thou/uL (0.11-0.59); #Neutrophils 10.8 thou/uL (1.40-6.50); %Eosinophils 0.1 % (0.0-10.0); %Lymphocytes 3.3 % (21.0-51.0); %Monocytes 5.1 % (0.0-10.0); %Neutrophils 91.5 % (42.0-75.0); Hemoglobin 10.8 g/dL (14.0-18.0); Mean Corpuscular HGB CONC 33.6 g/dL (32.0-36.0); Mean Corpuscular Hemoglobin 30.2 pg (27.0-31.0); Mean Corpuscular Volume 89.9 fL (78.0-98.0); Mean Platelet Volume 7.7 fL (7.4-10.4); Platelet Count 286 thou/uL (130-400); RBC Distribution Width 12.9 % (11.5-14.5); Red Blood Cell (RBC) Count 3.56 mill/uL (4.70-6.10); White Blood Cell (WBC) Count 11.8 thou/uL (4.8-10.8)
[2020-03-29 04:33] LABS: Anion Gap 24 mmol/L (10-20); BUN (Urea Nitrogen) 108 mg/dL (8.4-25.7); Calc. Creatinine Clearance 43 mL/min (70-130); Calcium 9.1 mg/dL (7.8-10.44); Carbon Dioxide 18 mmol/L (23-31); Chloride 101 mmol/L (98-107); Estimated GFR-MDRD 40; Glucose 222 mg/dL (83-110); Magnesium 3.2 mg/dL (1.6-2.6); Potassium 5.2 mmol/L (3.5-5.1); Sodium 138 mmol/L (136-145)
[2020-03-29] MEDS: Sodium Chloride 0.9% 1,000 ML IV SCH (05:39)
[2020-03-29] MEDS: HumaLOG 300 UNITS/3 ML VIAL SC PRN ×2 (05:41→13:43)
[2020-03-29 07:34] VITALS: TEMP 97.4
[2020-03-29] MEDS: Mometasone 200 MCG/Formoterol 5 MCG 120 PUFF INHALER INH SCH (08:18)
[2020-03-29] MEDS: Enoxaparin Sodium 100 MG/ML SYRINGE SC SCH (09:21)
[2020-03-29] MEDS: Cholecalciferol 1,000 UNITS (25 MCG) TAB PO SCH (10:30)
[2020-03-29] MEDS: Gabapentin 300 MG CAP PO SCH ×2 (10:30→17:10)
[2020-03-29] MEDS: FLUoxetine HCl 20 MG CAP PO SCH (10:30)
[2020-03-29] MEDS: Aspirin 325 mg Enteric Coated Tablet PO SCH (10:30)
[2020-03-29] MEDS: Lisinopril 5 MG TAB PO SCH (10:31)
[2020-03-29] MEDS: Metoprolol Tartrate 25 MG TAB PO SCH (10:31)
[2020-03-29] MEDS: Tamsulosin HCl 0.4 MG CAP PO SCH (10:33)
[2020-03-29] MEDS ORDERED: Sodium Chloride 0.9% 1,000 ML IV SCH (11:14)
--- NOTE | 2020-03-29 11:47 | PRG ---
DATE OF SERVICE: 03/29/2020 SUBJECTIVE: A 80-year-old gentleman, remains in the MICU. OBJECTIVE: VITAL SIGNS: Temperature is 97.4, pulse 102, FiO2 80% on BiPAP, blood pressure 130/71, respiratory rate 18, saturations 90%. His I's and O's have been consistently even. CHEST: Rhonchi, crackles. CARDIAC: Normal S1, S2. No gallops, no rubs. LABORATORY DATA: BUN and creatinine are worsening. BUN , creatinine 1.6. His BNP is 826. IMPRESSION: Parry positive pneumonia, acute respiratory distress syndrome, respiratory failure, increasing azotemia, metabolic encephalopathy. PLAN: We will increase IV fluids 100 an hour. Continue steroids, supportive care. He is a [facility] patient. dementia, bipolar. His prognosis remains very guarded. We are in the process of trying to discuss with family members ongoing issues. He is to get convalescent plasma. He is on antibiotics, supportive care. Job ID: [id number]
[2020-03-29 14:04] LABS: Actual Bicarbonate (HCO3a) 16.9 mEq/L (22-28); Base Excess (BEa) -6.8 mEq/L (-2.0 to +3.0); CO2 Tension 28.2 mmHg (35.0-45.0); Calcium, Ionized (arterial) 1.17 mmol/L (1.12-1.30); Carboxyhemoglobin (COHb) 0.3 gm% (0.0-3.0); Hemoglobin (Hb) 11.1 g/dL (14.0-18.0); Potassium - ABG Lab 5.32 mmol/L (3.70-5.30)
[2020-03-29 14:05] LABS: O2 Tension (PaO2), arterial 55.9 mmHg (> 70.0); Puncture Site RR
--- NOTE | 2020-03-29 14:37 | PDOC.HOSPP ---
- Subjective Encounter Date: 03/29/20 Encounter Time: 14:35 Subjective: This patient seen and evaluated. His respiratory status has worsened significantly. He has been on a BiPAP and he does not seem to be doing well. He is very obtunded and difficult to arouse some. He continues to deteriorate. I had a chance to discuss the case with the pulmonary services who has kindly agreed to probably intubate him so he can be mechanically ventilated. - Objective Vital Signs & Weight: Vital Signs (12 hours) Temp Pulse Pulse Ox 03/29/20 13:52 103 H 03/29/20 10:31 102 H 03/29/20 08:08 102 H 03/29/20 08:00 94 L 03/29/20 05:00 97.4 F L 03/29/20 02:45 100 Weight Admit Weight 186 lb 12.8 oz Weight 184 lb 8 oz Most Recent Monitor Data Heart Rate from ECG 102 NIBP 142/95 NIBP BP-Mean 110 Respiration from ECG 26 SpO2 91 I&O: 03/28/20 03/29/20 03/30/20 06:59 06:59 06:59 Intake Total 450 960 Output Total 600 400 Balance -150 560 Result Diagrams: 03/29/20 03:22 03/29/20 03:22 Additional Labs: Accuchecks 03/29/20 03/29/20 03/28/20 13:06 05:39 21:10 POC Glucose 215 H 205 H 202 H 03/28/20 17:49 POC Glucose 204 H Radiology Reviewed by me: Yes EKG Reviewed by me: Yes Hospitalist ROS - Review of Systems ROS unobtainable: due to mental status Constitutional: reports: weakness, malaise Respiratory: reports: shortness of breath, hemoptysis, SOB with excertion, pleuritic pain, sputum Neurological: reports: weakness, incoordination, confusion - Medication Medications: Active Medications Generic Name Dose Route Start Last Admin Trade Name Freq PRN Reason Stop Dose Admin Albuterol/Ipratropium 3 ml 03/28/20 13:00 03/29/20 13:52 Ipratropium/Albuterol Sulfate 3 Ml Neb NEB 3 ml [id number] MIKAELA Administration Aspirin 325 mg 03/24/20 09:00 03/29/20 10:30 Aspirin 325 Mg Enteric Coated Tablet PO Not Given DAILY MIKAELA Atorvastatin Calcium 40 mg 03/24/20 21:00 03/28/20 22:13 Atorvastatin Calcium 40 Mg Tab PO Not Given [facility] Cholecalciferol 1,000 units 03/25/20 09:00 03/29/20 10:30 Cholecalciferol 1,000 Units (25 Mcg) Tab PO Not Given DAILY MIKAELA Divalproex Sodium 500 mg 03/24/20 21:00 03/28/20 22:14 Divalproex Sodium Er 500 Mg Tablet PO Not Given [facility] Enoxaparin Sodium 90 mg 03/24/20 09:00 03/29/20 09:21 Enoxaparin Sodium 100 Mg/Ml Syringe SC 90 mg 0900,2100 MIKAELA Administration Fluoxetine HCl 20 mg 03/25/20 09:00 03/29/20 10:30 Fluoxetine Hcl 20 Mg Cap PO Not Given DAILY MIKAELA Gabapentin 300 mg 03/24/20 15:00 03/29/20 10:30 Gabapentin 300 Mg Cap PO Not Given TID MIKAELA Ceftriaxone Sodium 1 gm/ 100 mls @ 200 mls/hr 03/24/20 21:00 03/28/20 21:01 Sodium Chloride IVPB 100 mls Q24HR MIKAELA Administration Azithromycin 500 mg/ Sodium 250 mls @ 250 mls/hr 03/24/20 21:00 03/28/20 22:10 Chloride IVPB 250 mls Q24HR MIKAELA Administration Sodium Chloride 1,000 mls @ 100 mls/hr 03/29/20 11:14 03/29/20 13:40 Normal Saline 0.9% IV 1,000 mls .Q10H MIKAELA Administration Insulin Human Lispro 0 units 03/24/20 18:11 03/29/20 13:43 Humalog 300 Units/3 Ml Vial SC 3 units .MILD SLIDING SCALE PRN Administration Mild Correctional Scale Insulin Human Lispro 0 units 03/24/20 18:11 03/24/20 21:56 Humalog 300 Units/3 Ml Vial SC 2 unit .BEDTIME SLIDING SC PRN Administration Bedtime Correctional Scale Lorazepam 0.5 mg 03/26/20 10:23 03/26/20 22:30 Lorazepam 0.5 Mg Tab PO 0.5 mg Q6H PRN Administration Anxiety Methylprednisolone Sodium Succinate 40 mg 03/28/20 12:00 03/29/20 12:29 Methylprednisolone Sod Succ 40 Mg Vial IVP 40 mg Q6HR MIKAELA Administration Metoprolol Tartrate 12.5 mg 03/24/20 09:00 03/29/20 10:31 Metoprolol Tartrate 25 Mg Tab PO Not Given BID MIKAELA Mometasone Furoate/Formoterol Fumar 2 puff 03/28/20 18:30 03/29/20 08:18 Mometasone 200 Mcg/Formoterol 5 Mcg 120 Puff Inhaler INH Not Given BID-RT MIKAELA Morphine Sulfate 1 mg 03/27/20 18:50 03/28/20 16:09 Morphine 2 Mg/Ml Vial SLOW IVP 1 mg Q2H PRN Administration .AIR HUNGER OR PAIN Quetiapine Fumarate 25 mg 03/24/20 21:00 03/29/20 10:31 Quetiapine Fumarate 25 Mg Tab PO Not Given BID MIKAELA Sodium Chloride 10 ml 03/24/20 09:00 03/29/20 10:33 Flush - Normal Saline 10 Ml Syringe IVF Not Given Q12HR MIKAELA Sodium Chloride 10 ml 03/24/20 01:45 03/29/20 00:34 Flush - Normal Saline 10 Ml Syringe IVF 10 ml PRN PRN Administration Saline Flush Tamsulosin HCl 0.4 mg 03/27/20 09:00 03/29/20 10:33 Tamsulosin Hcl 0.4 Mg Cap PO Not Given DAILY MIKAELA - Exam General Appearance: awake alert, ill appearing ENT: normocephalic atraumatic, no oropharyngeal lesions, dry oral mucosa Neck: supple, symmetric, no JVD, no lymphadenopathy Heart: RRR, no murmur Respiratory: wheezes Gastrointestinal: soft, non-tender, non-distended, normal bowel sounds Neurological: no new deficit Psychiatric: not oriented, somnolent, lethargic Hosp A/P (1) Respiratory failure with hypoxia Code(s): J96.91 - RESPIRATORY FAILURE, UNSPECIFIED WITH HYPOXIA Status: Acute Qualifiers: Chronicity: acute Qualified Code(s): J96.01 - Acute respiratory failure with hypoxia Plan: This has worsened significantly. At this point I believe he needs to be intubated and mechanically ventilated. Pulmonary services will pursue that option. (2) Pneumonia due to COVID-19 virus Code(s): U07.1 - COVID-19; J12.89 - OTHER VIRAL PNEUMONIA Status: Acute Plan: This is worse. He seems to be doing poorly. He is at risk of from this virus. At best his prognosis is guarded. (3) Dementia Code(s): F03.90 - UNSPECIFIED DEMENTIA WITHOUT BEHAVIORAL DISTURBANCE Status: Chronic Qualifiers: Dementia type: Alzheimer's disease Dementia behavioral disturbance: with behavioral disturbance (4) Diabetes Code(s): E11.9 - TYPE 2 DIABETES MELLITUS WITHOUT COMPLICATIONS Status: Acute Qualifiers: Diabetes mellitus type: type 2 Diabetes mellitus senior care insulin use: with tank terminal gauger use Diabetes mellitus complication status: with kidney complications Diabetes mellitus complication detail: with chronic kidney disease Chronic kidney disease stage: stage 3 (moderate) (5) NSTEMI (non-ST elevated myocardial infarction) Code(s): I21.4 - NON-ST ELEVATION (NSTEMI) MYOCARDIAL INFARCTION Status: Acute - Plan #1 Acute hypoxic respiratory failure. Likely secondary to COVID-19 pneumonia. We will utilize O2 supplementation as needed. 03/25/2020. His respiratory status appears to have worsened overnight. He is now on high flow nasal cannula. There appears to be now elements of pleural effusion likely from iatrogenic volume resuscitation from admission. We will keep him on high flow nasal cannula and downgrade as tolerated. 03/26/2020. This has worsened significantly to the point that he is now on BiPAP since last night. He is being managed now by pulmonary services. His prognosis is guarded at best. 03/27/2020. He remains on BiPAP but he is doing poorly. We appreciate pulmonary's help. 03/28/2020. He is still on the BiPAP. We appreciate pulmonary/critical care for their help. We will continue BiPAP and wean as tolerated. His prognosis appears guarded at best. 03/29/2020. He had deteriorated further since the last time I saw him. I discussed this case with the on-call professional skateboarder. I believe he needs to be intubated and mechanically ventilated. Will defer to t alok about that. 2. COVID-19 pneumonia. He reportedly was diagnosed at his residential and he started declining prompting this transfer to the hospital. Chest x-ray obtained here on admission consistent with Covid pneumonia. He is on empiric IV antibiotics and ID services evaluation has been obtained. I will defer to them about further management. 03/25/2020. Continue treatment for the Covid pneumonia. 03/26/2020. Continue supportive care with antibiotic. Will discuss with ID about consi dering remdesivir. 03/27/2020. Continue supportive care above. 3. Diabetes type 2. Accu-Cheks before meals and at bedtime. We will utilize insulin sliding scale coverage. 03/25/2020. Diabetes type 2 now complicated by steroid use for his Covid. We will continue to utilize sliding scale coverage. 4. Hyponatremia. Likely pseudohyponatremia from elevated blood glucose. We will correct this. 5. Nonischemic elevated troponin. He did not report any chest pain. This is likely type II secondary to COVID-19 pneumonia and respiratory failure. This is nonischemic. No further work-up required. 03/25/2020. He has been evaluated by nutrition aide who recommends medical management.
[2020-03-29] MEDS ORDERED: Ventilator Sedation Protocol 1 EACH FS SCH (15:45)
--- NOTE | 2020-03-29 15:59 | PRG ---
DATE OF SERVICE: 03/29/2020 SUBJECTIVE: Brenden Holland remains encephalopathic blood gas was done, which showed a pO2 of 55, pCO2 on a BiPAP 12/6, 50% FiO2, is clearly encephalopathic. It is felt that the best option at this time was transfer him to the ICU, get intubated until family members can make a decision. He was therefore transferred to the ICU, where he remains obtunded. OBJECTIVE: CHEST: Decreased breath sounds. No wheezing. No crackles. CARDIAC: Normal S1, S2. No gallops. ABDOMEN: No masses. IMPRESSION: Parry positive pneumonia, respiratory failure, renal failure, azotemia, diabetes, congestive heart failure. PLAN: Prognosis is grave. We are going to intubate the patient. Continue vent support. Continue all other present treatment until we discuss with the family that his long-term prognosis is grave. This is one-half hour of critical care time. Job ID: [id number]
[2020-03-29] MEDS ORDERED: Fentanyl BOLUS 250 ML IVPB PRN (16:00)
[2020-03-29] MEDS ORDERED: Propofol 1,000 MG/100 ML VIAL IV PRN (16:00)
[2020-03-29] MEDS ORDERED: Lorazepam 2 MG/ML VIAL SLOW IVP PRN (16:00)
[2020-03-29] MEDS ORDERED: DISCONTINUE PREVIOUS NARCOTIC PAIN MEDICATIONS AND BENZODIAZEPINES FS SCH (16:00)
[2020-03-29] MEDS ORDERED: fentaNYL Citrate/PF 2,000 MCG in Sodium Chloride 0.9% 60 ML IV SCH (16:00)
[2020-03-29] MEDS ORDERED: Propofol BOLUS 1,000 MG/100 ML VIAL IV PRN (16:00)
[2020-03-29] MEDS ORDERED: Morphine 2 MG/ML VIAL SLOW IVP PRN (16:00)
[2020-03-29 16:39] VITALS: BP 99/60
[2020-03-29 16:45] LABS: Actual Bicarbonate (HCO3a) 15.5 mEq/L (22-28); Base Excess (BEa) -11.5 mEq/L (-2.0 to +3.0); CO2 Tension 38.9 mmHg (35.0-45.0); Calcium, Ionized (arterial) 1.16 mmol/L (1.12-1.30); Carboxyhemoglobin (COHb) 0.3 gm% (0.0-3.0); Hemoglobin (Hb) 11.3 g/dL (14.0-18.0); O2 Tension (PaO2), arterial 265.2 mmHg (> 70.0); Potassium - ABG Lab 6.22 mmol/L (3.70-5.30)
[2020-03-29 16:49] LABS: Puncture Site LRA; pH, Arterial 7.22 (7.35-7.45)
[2020-03-29 16:50] LABS: ALV-art Gradient 399.175 mmHg (0-20)
[2020-03-29] MEDS ORDERED: Norepinephrine 8 MG/0.9% NS 250 ML ONE (17:09)
[2020-03-29] MEDS ORDERED: Norepinephrine 8 MG/0.9% NS 250 ML IVPB SCH (17:15)
[2020-03-29] MEDS ORDERED: Sodium Bicarb 50 MEQ/50 ML Abboject 8.4% SYRINGE ONE (17:46)
--- NOTE | 2020-03-29 19:05 | RAD ---
ONE VIEW CHEST: 03/29/20 HISTORY: Post intubation. COMPARISON: 03/27/20. FINDINGS: Endotracheal tube has been placed in the interim with the tip overlying the T4 vertebral body and abo ve the level of the shayna. Nasogastric tube has also been placed in the interim. Which courses into the upper abdomen, the tip is not imaged. The cardiac silhouette is enlarged. There are bilateral parenchymal air space opacities as well as ground glass opacities with suggestion of mild improvement in aeration compared to prior study given differences in technique. No other int erval change. IMPRESSION: 1. Persistent ground glass opacities throughout the lungs bilaterally which can be seen with vir al pneumonitis such as COVID 19. 2. Interval placement of endotracheal tube and nasogastric tube. POS: [facility]
--- NOTE | 2020-03-31 04:36 | PQF ---
CLINICAL DOCUMENTATION CLARIFICATION FORM: Dear : Kevin Conti Date / Time: 03/31/2020 5796 Please exercise your independent, professional judgment in responding to the clarification form. Clinical indicators are provided on the bottom of this form for your review Please check appropriate box(es): HEART FAILURE: A. ACUITY [ ] Acute [ ] Acute on Chronic [ ] Chronic B. TYPE: [ ] Systolic / HFrEF [ ] Diastolic / HFpEF [ ] Combined Systolic / Diastolic [ ] Other diagnosis [ ] Unable to determine In addition, please specify: Present on Admission (POA): [ ] Yes [ ] No [ ] Unable to determine Physician Signature: Date/Time: For continuity of documentation, please document condition throughout progress notes and discharge summary. Thank You. To be completed by CDI/Coding staff for physician review: Present Clinical Indicators - Signs / Symptoms / Labs Results and Location in Medical Record [X] BNP 889.6; 826.7 Laboratory 03/25 [X] BP 127/79, Pulse 95, resp 22. Temp 98.0 Vital signs 03/23 [X] Chest Xray Impression : Pleural effusion Imaging Dr Schulte 03/27 [X] There was appears to be now elements of pleural effusion likely form iatrogenic volume resuscitation from admission PN p6 03/30 DR Caban [X] CHF PN p1 03/29 Dr Conti [X] reports cough and SOB" ED Notes 03/23 [X] Crackles PN 03/29 [X] no JVD no peripheral edema PN 03/27 Present Risk Factors Results and Location in Medical Record [X] 80 year-old Male H&P p1 03/23 [facility] [X] Demenita H&P p1 03/23 [facility] [X] CAD H&P p1 03/23 [facility] [X] DM H&P p1 03/23 [facility] [X] HTN H&P p1 03/23 [facility] [X] Covid Pneumonia H&P p3 03/23 [facility] [X] NSTEMI H&P p3 03/23 [facility] [X] Acute Respiratory failure H&P p3 03/23 [facility] [X] HLD ED Notes 03/23 Present Treatments Results and Location in Medical Record [X] Chest Xray Imaging Dr Schulte 11/1 [X] Bipap Respiratory Panel 03/26 [X] Mechanical ventilator Respiratory Panel 03/29 [X] IV Lasix 40 mg MAR 03/25 [X] Admitted to ICU H&P p3 03/23 [facility] [X] Cardiology Consult Consult 03/23 CDS/Allergist/Immunologist Signature: Anna Griggs Phone #: [phone] Date/Time: 03/31/2020 0436 This is a permanent part of the Medical Record [facility]
--- NOTE | 2020-03-31 04:37 | PQF ---
CLINICAL DOCUMENTATION CLARIFICATION FORM: Dear : Kevin Conti Date / Time: 03/31/2020 0345 Please exercise your independent, professional judgment in responding to the clarification form. Clinical indicators are provided on the bottom of this form for your review Please check appropriate box(es): [ ] Acute Renal Failure (ARF) / Acute Kidney Injury (DONYA) [ ] Acute Tubular Necrosis (ATN) [ ] Acute Cortical Necrosis [ ] Acute Medullary Necrosis [ ] Acute on Chronic Renal Failure please specify Stage of CKD (see below) [ ] CKD without ARF/DONYA please specify Stage of CKD [ ] Other diagnosis [ ] Unable to determine In addition, please specify: Present on Admission (POA): [ ] Yes [ ] No [ ] Unable to determine Physician Signature: Date/Time: For continuity of documentation, please document condition throughout progress notes and discharge summary. Thank You. To be completed by CDI/Coding staff for physician review: Present Clinical Indicators - Signs / Symptoms / Labs Results and Location in Medical Record [X] BUN 30, Creatinine 1.07, GFR 67 Laboratory 03/23 [X] BUN 108, Creatinine 1.66, GFR 40, [place] 24 Laboratory 03/29 [X] BP 127/79, Pulse 95, resp 22. Temp 98.0 Vital signs 03/23 [X] BP 63/34, Pulse 189, Resp 43 Vital signs 03/29 [X] Increasing azotemia PN p1 03/29 Dr Conti [X] Renal failure PN p1 03/29 Dr Conti [X] Reports weakness and malaise PN 03/29 [X] He remains very confused and disoriented PN 03/28 Present Risk Factors Results and Location in Medical Record [X] 80 year-old Male H&P p1 03/23 [place] [X] Demenita H&P p1 03/23 [facility] [X] CAD H&P p1 03/23 [facility] [X] DM H&P p1 03/23 [facility] [X] HTN H&P p1 03/23 [place] [X] Covid Pneumonia H&P p3 03/23 [place] [X] NSTEMI H&P p3 03/23 [place] [X] Acute Respiratory failure H&P p3 03/23 [facility] [X] CHF PN p1 03/29 Dr Conti Present Treatments Results and Location in Medical Record [X] Monitoring for creatinine and BUN Laboratory 03/23 [X] IV Normal Saline 1L Bolus AUG 03 [X] Admitted to ICU H&P p3 03/23 [place] CDS/Regional Account Executive Signature: Anna Griggs Phone #: ext [phone] Date/Time: 03/31/2020 0437 This is a permanent part of the Medical Record [facility]
--- NOTE | 2020-03-31 04:38 | PQF ---
CLINICAL DOCUMENTATION CLARIFICATION FORM: Dear : Kevin Conti Date / Time: 03/31/2020 4087 Please exercise your independent, professional judgment in responding to the clarification form. Clinical indicators are provided on the bottom of this form for your review Please check appropriate box(es): [ ] Sepsis due to Covid 19 Pneumonia [ ] Severe Sepsis due to Covid 19 Pneumonia with Acute Respiratory Failure [ ] Localized infection without sepsis [ ] Other diagnosis [ ] Unable to determine In addition, please specify: Present on Admission (POA): [ ] Yes [ ] No [ ] Unable to determine Physician Signature: Date/Time: For continuity of documentation, please document condition throughout progress notes and discharge summary. Thank You. To be completed by CDI/Coding staff for physician review: Present Clinical Indicators - Signs / Symptoms / Labs Results and Location in Medical Record [X] BP 127/79, Pulse 95, resp 22. Temp 98.0 Vital signs 03/23 [X] WBC 7.4, Plt count 304, Neutrophils 71.1, Lactic acid 1.2 Laboratory 03/23 [X] Blood culture: No growth at 5 days Microbiology 03/23 [X] SIRS Scoring: Pt did meet criteria ED notes p2 03/23 [X] Acute Respiratory failure H&P p3 03/23 [facility] [X] Covid Pneumonia H&P p3 03/23 [facility] [X] Metabolic Encephalopathy PN p1 03/29 Dr Conti Present Risk Factors Results and Location in Medical Record [X] 80 year-old Male H&P p1 03/23 [facility] [X] Demenita H&P p1 03/23 [facility] [X] CAD H&P p1 03/23 [facility] [X] DM H&P p1 03/23 [facility] [X] HTN H&P p1 03/23 [facility] [X] Covid Pneumonia H&P p3 03/23 [facility] [X] NSTEMI H&P p3 03/23 [facility] Present Treatments Results and Location in Medical Record [X] Chest Xray Imaging Dr Schulte 03/27 [X] Bipap Respiratory Panel 03/26 [X] Mechanical ventilator Respiratory Panel 03/29 [X] Admitted to ICU H&P p3 03/23 [facility] [X] IV Normal Saline MAR 03/23 [X] IV Ceftriazone 1 gm AUG 03 [X] IV Azithormycin 500 mg AUG 03 [X] Blood culture Microbiology 03/23 [X] Sepsis protocol ED notes p2 03/23 [X] ID consult Consult 03/23 [X] Pulmonology consult Consult 03/26 [facility] [employer] Signature: Anna Griggs Phone #: [phone] Date/Time: 03/31/2020 0438 This is a permanent part of the Medical Record [facility]
--- NOTE | 2020-04-02 15:05 | EKG ---
Test Reason : SOB Blood Pressure : / mmHG Vent. Rate : 094 BPM Atrial Rate : 094 BPM P-R Int : 152 ms QRS Dur : 110 ms QT Int : 356 ms P-R-T Axes : 038 019 086 degrees QTc Int : 445 ms Normal sinus rhythm Possible Left atrial enlargement Inferior infarct , age undetermined Anteroseptal infarct , age undetermined Abnormal ECG Confirmed by NIKO JACOME ([id number]), editor at large AMINA WELLS ([id number]) on 04/02/2020 3:04:46 PM Referred By: Confirmed By:NIKO JACOME
== END 2020-03-29 17:54 | disposition expired | DRG 208 ==
LOC: ERS 20:09 → 2SW 23:06 → IMCU/EMU 03-26 06:40 → CCU 03-29 15:41
PROVIDERS: ADMIT Internal Medicine; ATTEND Hospitalist
PROC: 8E0ZXY6 Isolation (ICD-10-PCS; 2020-03-23)
PROC: 5A09457 Assistance with Respiratory Ventilation, 24-96 Consecutive Hours, Continuous Positive Airway Pressure (ICD-10-PCS; principal; 2020-03-26)
PROC: 5A1935Z Respiratory Ventilation, Less than 24 Consecutive Hours (ICD-10-PCS; 2020-03-29)
PROC: 3E033XZ Introduction of Vasopressor into Peripheral Vein, Percutaneous Approach (ICD-10-PCS; 2020-03-29)
PROC: 5A2204Z Restoration of Cardiac Rhythm, Single (ICD-10-PCS; 2020-03-29)
PROC: 5A12012 Performance of Cardiac Output, Single, Manual (ICD-10-PCS; 2020-03-29)
PROC: 0BH17EZ Insertion of Endotracheal Airway into Trachea, Via Natural or Artificial Opening (ICD-10-PCS; 2020-03-29)
DX: J12.89 Other viral pneumonia (principal); U07.1 COVID-19; I21.A1 Myocardial infarction type 2; J80 Acute respiratory distress syndrome; G93.41 Metabolic encephalopathy; E87.1 Hypo-osmolality and hyponatremia; F01.51 Vascular dementia, unspecified severity, with behavioral disturbance; I47.2 Ventricular tachycardia; I13.0 Hypertensive heart and chronic kidney disease with heart failure and stage 1 through stage 4 chronic kidney disease, or unspecified chronic kidney disease; I25.10 Atherosclerotic heart disease of native coronary artery without angina pectoris; G47.00 Insomnia, unspecified; F31.9 Bipolar disorder, unspecified; E78.5 Hyperlipidemia, unspecified; Z96.649 Presence of unspecified artificial hip joint; E11.29 Type 2 diabetes mellitus with other diabetic kidney complication; R80.8 Other proteinuria; I50.9 Heart failure, unspecified; Z78.1 Physical restraint status; I25.2 Old myocardial infarction; Z79.899 Other long term (current) drug therapy; Z79.84 Long term (current) use of oral hypoglycemic drugs; Z79.82 Long term (current) use of aspirin; N18.30 Chronic kidney disease, stage 3 unspecified; E11.22 Type 2 diabetes mellitus with diabetic chronic kidney disease
CPT/HCPCS: 36415; 36416; 51701; 71045; 71275; 80048; 80053; 80061; 82553; 82565; 82728; 82805; 83036; 83605; 83615; 83690; 83735; 83880; 83930; 84145; 84443; 84484; 85007; 85014; 85018; 85025; 85027; 85049; 86140; 86850; 86900; 86901; 87040; 87086; 87804; 93005; 94002; 94640; 94660; 96365; 96367; 96372; 96374; J0456; J0696; J1100; J1650; J1940; J2270; J2920; J3490; J7050; J7620; P9045; Q9967